=== PATIENT | female | born 1940 | race Caucasian/White ===

== ENCOUNTER 2019-04-04 02:19 | Inpatient (IN) | payer MEDICARE, BC ==
[2019-04-04 02:52] LABS: Bilirubin Negative (Negative); Blood, Urine Trace (Negative); Clarity Clear (Clear); Glucose, Urine (Dipstick) Normal (Negative); Leukocyte Negative Leu/uL (Negative); Nitrite Negative (Negative); Protein, Urine (Dipstick) 30 mg/dL (Neg-Trace); RBC/HPF 0-3 HPF (0-3); Squamous Epithelial 0-3 HPF (0-3); Urobilinogen Normal mg/dL (Less than 2); WBC/HPF 0-3 HPF (0-3)
[2019-04-04 02:54] LABS: Bacteria/HPF 1+ HPF (None Seen)
[2019-04-04 03:05] LABS: #Basophils 0.1 thou/uL (0.0-0.2); #Eosinphils 0.1 thou/uL (0.0-0.7); #Lymphocytes 0.9 thou/uL (1.20-3.40); #Monocytes 0.5 thou/uL (0.11-0.59); #Neutrophils 5.2 thou/uL (1.40-6.50); %Basophils 0.8 % (0.0-1.0); %Eosinophils 1.4 % (0.0-10.0); %Monocytes 7.9 % (0.0-10.0); %Neutrophils 76.8 % (42.0-75.0); Hemoglobin 9.2 g/dL (12.0-16.0); Mean Corpuscular HGB CONC 33.7 g/dL (32.0-36.0); Mean Corpuscular Hemoglobin 32.1 pg (27.0-31.0); Mean Corpuscular Volume 95.1 fL (78.0-98.0); Mean Platelet Volume 6.5 fL (7.4-10.4); Platelet Count 227 thou/uL (130-400); RBC Distribution Width 12.5 % (11.5-14.5); Red Blood Cell (RBC) Count 2.85 mill/uL (4.20-5.40); White Blood Cell (WBC) Count 6.8 thou/uL (4.8-10.8)
[2019-04-04 03:22] LABS: ALT (SGPT) 31 U/L (8-55); AST (SGOT) 40 U/L (5-34); Albumin 3.9 g/dL (3.4-4.8); Alkaline Phosphatase 59 U/L (40-150); Anion Gap 12 mmol/L (10-20); BUN (Urea Nitrogen) 35 mg/dL (9.8-20.1); Bilirubin, Total 0.5 mg/dL (0.2-1.2); CK (CPK) 425 U/L (29-168); Calc. Creatinine Clearance 0 mL/min (70-130); Calcium 9.4 mg/dL (7.8-10.44); Carbon Dioxide 25 mmol/L (23-31); Chloride 97 mmol/L (98-107); Estimated GFR-MDRD 59; Globulin 2.2 g/dL (2.4-3.5); Glucose 106 mg/dL (83-110); Potassium 4.1 mmol/L (3.5-5.1); Protein, Total 6.1 g/dL (6.0-8.3); Sodium 130 mmol/L (136-145)
[2019-04-04] MEDS ORDERED: Ibuprofen 200 MG TAB ONE (03:35)
[2019-04-04] MEDS ORDERED: HYDROcodone/Acetaminophen 5/325 mg Tablet ONE (03:35)
[2019-04-04] MEDS ORDERED: Loperamide HCl 2 MG CAP PO PRN (07:28)
[2019-04-04] MEDS ORDERED: hydrALAZINE 20 MG/ML VIAL SLOW IVP PRN (07:28)
[2019-04-04] MEDS ORDERED: Cepastat Lozenges 1 LOZ PO PRN (07:28)
[2019-04-04] MEDS ORDERED: Zolpidem Tartrate 5 MG TAB PO PRN (07:28)
[2019-04-04] MEDS ORDERED: Sodium Chloride 0.65% Nasal 44 ML BOT EA NARE PRN (07:28)
[2019-04-04] MEDS ORDERED: Ondansetron PF 4 MG/2 ML Vial IVP PRN (07:28)
[2019-04-04] MEDS ORDERED: Bisacodyl 10 MG SUPP PR PRN (07:28)
[2019-04-04] MEDS ORDERED: Ondansetron ODT 4 MG TAB PO PRN (07:28)
[2019-04-04] MEDS ORDERED: Diabetic Tussin 200 MG/10 ML UDCUP PO PRN (07:28)
[2019-04-04] MEDS ORDERED: Loratadine 10 MG TAB PO PRN (07:28)
[2019-04-04 07:36] VITALS: BMI 24.7
[2019-04-04] MEDS ORDERED: Prevnar 13-Val Conj/PF 0.5 ML SYRINGE IM ONE (08:00)
[2019-04-04] MEDS: Sodium Chloride 0.9% 1,000 ML IV SCH ×3 (08:01→21:17)
--- NOTE | 2019-04-04 08:01 | CT ---
PRELIMINARY REPORT/[facility]/EMERGENCY AFTER HOURS PROCEDURE: EXAM: CT Head Without Contrast EXAM DATE/TIME: 04/04/2019 3:07 AM CLINICAL HISTORY: 78 years old, female; Injury or trauma; Initial encounter; Blunt trauma (contusions or hematomas); Niko kavya HX: 78 y/o F presents to ED S/P fall. PT informed EMS of multiple falls this month, which PT de scribes to have been due to syncope; However she reports fall tonight was mechanical in nature. PT C/O SMITH. Denies neck pain, back pain, hip pain, cp, vision changes. PT has full memory of fall marcel ght TECHNIQUE: Imaging protocol: Computed tomography images of the head without contrast. COMPARISON: No relevant prior studies available. FINDINGS: Brain: Scattered areas of hypoattenuation, likely chronic small vessel ischemic change, demyelination , or gliosis. Ventricles: Normal. Bones/joints: Normal. Sinuses: Normal as visualized. Mastoid air cells: Normal as visualized. Soft tissues: Right frontal and left posterior parietal soft tissue swelling/contusions. Vasculature: Atherosclerotic vascular calcifications. IMPRESSION: 1. No acute intracranial abnormality. 2. Right frontal and left posterior parietal soft tissue swelling/contusions. Thank you for allowing us to participate in the care of your patient. Dictated and Authenticated by: Dale Cifuentes MD 04/04/2019 4:00 AM Central Time ([place] & [place]) FINAL REPORT EMERGENT AFTER HOURS CT OF THE BRAIN WITHOUT CONTRAST: FINDINGS/IMPRESSION: I agree with the findings and impression given in the preliminary report per [facility] physician. 1. No evidence of acute intracranial abnormality. 2. Small-vessel ischemic disease.
[2019-04-04] MEDS: Famotidine 20 MG TAB PO SCH ×2 (08:45→21:06)
[2019-04-04] MEDS: Enoxaparin Sodium 40 MG/0.4 ML SYRINGE SC SCH (08:46)
--- NOTE | 2019-04-04 09:05 | RAD ---
RIGHT SHOULDER 3 VIEWS: HISTORY: Fall with shoulder pain. FINDINGS: There are mild arthritic changes of the shoulder joints. The bones appear demineralized. There are no signs of any fracture or dislocation. There are some calcified bodies near the coracoid and benea th the clavicle. IMPRESSION: Mild arthritic changes of the shoulder. No evidence of fracture. POS: [facility]
--- NOTE | 2019-04-04 12:55 | HP ---
PRIMARY CARE PHYSICIAN: Edwin Alex MD REASON FOR ADMISSION: Frequent fall, rhabdomyolysis, dehydration. HISTORY OF PRESENT ILLNESS: A 78-year-old female, who has underlying dementia. She was having frequent fall at home. She is not able to describe her nature of fall and reason for fall, but she claims that all fall related secondary to mechanical in nature. She had a similar fall last night and that is why, she was brought to emergency room. She does have mild shoulder pain and that is why, x-ray was done, which was negative. She had CT brain, which was negative for any acute intracranial process. REVIEW OF SYSTEMS: CONSTITUTIONAL: Negative for weight loss or gain, ability to conduct usual activities. SKIN: Negative for rash, itching. EYES: Negative for double vision, pain. ENT/MOUTH: Negative for nose bleeding, neck stiffness, pain, tenderness. CARDIOVASCULAR: Negative for palpitations, dyspnea on exertion, orthopnea. RESPIRATORY: Negative for shortness of breath, wheezing, cough, hemoptysis, fever or night sweats. GASTROINTESTINAL: Negative for poor appetite, abdominal pain, heartburn, nausea, vomiting, constipation, or diarrhea. GENITOURINARY: Negative for urgency, frequency, dysuria, nocturia. MUSCULOSKELETAL: Negative for pain, swelling. NEUROLOGIC/PSYCHIATRIC: Negative for anxiety, depression. ALLERGY/IMMUNOLOGIC: Negative for skin rash, bleeding tendency. Please see my HPI for pertinent positives and negatives. All other review of systems reviewed and negative except as mentioned in HPI. PAST MEDICAL HISTORY: Gastroesophageal reflux disease, hypertension, dyslipidemia, Alzheimer's dementia, history of CVA, and chronic kidney disease stage 3. PAST SURGICAL HISTORY: Adenoidectomy, appendicectomy, cholecystectomy, tonsillectomy, and cardiac catheterization. PAST PSYCHIATRIC HISTORY: Anxiety, depression, and bipolar disorder. SOCIAL HISTORY: The patient lives at home. No history of tobacco, alcohol, or illicit drug abuse. FAMILY HISTORY: Unknown. The patient is not able to provide detailed family history at this point. ALLERGIES: LYRICA, SULFA, TETRACYCLINE, AND WELLBUTRIN. EMERGENCY ROOM COURSE: The patient is given Gibson and Motrin. CURRENT HOME MEDICATION: 1. Amlodipine 10 mg daily. 2. Lipitor 40 mg p.o. at bedtime. 3. Vitamin B12 1000 mcg p.o. daily. 4. Hydrochlorothiazide 25 mg p.o. daily. 5. Imdur 60 mg p.o. daily. 6. Lisinopril 40 mg p.o. daily. 7. Toprol-XL 25 mg p.o. daily. PHYSICAL EXAMINATION: VITAL SIGNS: Currently, temperature 97.9, pulse 72, respiratory rate 18, saturation 99% on room air, blood pressure 157/68, weight 144 pounds. GENERAL: The patient is currently alert, awake. Baseline dementia noted. No acute distress. HEENT: Head; normocephalic, atraumatic. The patient does have mild hematoma on forehead. Eyes; pupils round, reactive to light. Extraocular muscle intact. ENT; oropharynx within normal limits. Moist mucous membranes. No oral lesion. No pharyngeal erythema. No exudate. NECK: Supple. No JVD. No thyromegaly. No carotid bruit. No jugular venous distention. LUNGS: Clear to auscultation without any rhonchi or rales. CARDIAC: S1, S2 regular without any significant murmur. Soft systolic murmur may be there, but not well appreciated. BACK EXAMINATION: Unremarkable. No CVA tenderness. EXTREMITIES: Upper extremities, the patient does have ecchymosis and contusion over right shoulder, abrasion over right forearm. Lower extremity, no edema. Good distal pulsation. SKIN: No skin rash other than contusion and abrasion. HEMATOLOGICAL SYSTEM: No lymphadenopathy. NEUROLOGIC: Nonfocal examination. SIGNIFICANT LABORATORY DATA: EKG showing normal sinus rhythm without any acute ischemic changes. CT brain showing right frontal and left posterior parietal soft tissue swelling/contusion. X-ray shoulder showing degenerative joint disease. CBC; WBC 6.8, hemoglobin 9.2, platelet 227. BMP; sodium 130, potassium 4.1, chloride 97, carbon dioxide 25, BUN 35, creatinine 0.93, glucose 106, calcium 9.4. LFT; AST 40, ALT 31, alkaline phosphatase 59, albumin 3.9. CK 425, troponin I 0.015. Urinalysis normal. ASSESSMENT: Impression: 1. Hyponatremia and hypochloremia likely due to volume depletion. 2. Dehydration. 3. Rhabdomyolysis. 4. Frequent fall. 5. Normocytic normochromic anemia. 6. Alzheimer's dementia. 7. Anxiety, depression, and bipolar disorder. 8. Coronary artery disease. 9. Hypertension. 10. Dyslipidemia. 11. Physical deconditioning. PLAN: Admission to medical floor. PT/OT consultation. grocery department manager consultation for placement. Continue IV fluid with NS at 100 mL/h. Resume her home medication. We will hold Lipitor because of elevated CK. We will repeat CK level tomorrow. We will check orthostatic vitals and we will get echocardiography as a part of workup for suspected syncope. The patient may need placement. grocery department manager will be consulted. We will monitor while in hospital. DVT prophylaxis, Lovenox 40 mg subcu daily. GI prophylaxis, Pepcid 20 mg p.o. b.i.d. CODE STATUS: The patient is full code. DISPOSITION PLAN: Based on clinical course. We are expecting the patient's stay in hospital more than 2 midnights. Plan of care was discussed with the patient in detail. Job ID: [id number]
[2019-04-04] MEDS: HYDROcodone/Acetaminophen 5/325 mg Tablet PO PRN ×2 (14:29→21:06)
[2019-04-05] MEDS: Acetaminophen 325 MG TAB PO PRN ×2 (03:49→10:52)
[2019-04-05 04:26] LABS: #Basophils 0.1 thou/uL (0.0-0.2); #Eosinphils 0.1 thou/uL (0.0-0.7); #Lymphocytes 0.8 thou/uL (1.20-3.40); #Monocytes 0.4 thou/uL (0.11-0.59); #Neutrophils 3.7 thou/uL (1.40-6.50); %Basophils 1.3 % (0.0-1.0); %Eosinophils 2.8 % (0.0-10.0); %Lymphocytes 15.3 % (21.0-51.0); %Monocytes 8.3 % (0.0-10.0); %Neutrophils 72.3 % (42.0-75.0); Hemoglobin 9.6 g/dL (12.0-16.0); Mean Corpuscular HGB CONC 33.1 g/dL (32.0-36.0); Mean Corpuscular Hemoglobin 32.1 pg (27.0-31.0); Mean Corpuscular Volume 96.8 fL (78.0-98.0); Mean Platelet Volume 6.5 fL (7.4-10.4); Platelet Count 219 thou/uL (130-400); RBC Distribution Width 12.6 % (11.5-14.5); Red Blood Cell (RBC) Count 3.01 mill/uL (4.20-5.40); White Blood Cell (WBC) Count 5.1 thou/uL (4.8-10.8)
[2019-04-05 04:45] LABS: ALT (SGPT) 25 U/L (8-55); AST (SGOT) 29 U/L (5-34); Albumin 3.4 g/dL (3.4-4.8); Alkaline Phosphatase 56 U/L (40-150); Anion Gap 11 mmol/L (10-20); BUN (Urea Nitrogen) 29 mg/dL (9.8-20.1); Bilirubin, Total 0.4 mg/dL (0.2-1.2); CK (CPK) 207 U/L (29-168); Calc. Creatinine Clearance 49 mL/min (70-130); Calcium 9.4 mg/dL (7.8-10.44); Carbon Dioxide 26 mmol/L (23-31); Chloride 102 mmol/L (98-107); Estimated GFR-MDRD 54; Globulin 2.5 g/dL (2.4-3.5); Glucose 114 mg/dL (83-110); Potassium 4.6 mmol/L (3.5-5.1); Protein, Total 5.9 g/dL (6.0-8.3); Sodium 134 mmol/L (136-145)
[2019-04-05] MEDS: Amlodipine 10 MG TAB PO SCH (08:01)
[2019-04-05] MEDS: Famotidine 20 MG TAB PO SCH ×2 (08:01→21:54)
[2019-04-05] MEDS: Hydrochlorothiazide 25 MG TAB PO SCH (08:02)
[2019-04-05] MEDS: Cyanocobalamin (Vitamin B-12) 1,000 MCG TAB PO SCH (08:02)
[2019-04-05] MEDS: Enoxaparin Sodium 40 MG/0.4 ML SYRINGE SC SCH (08:03)
[2019-04-05] MEDS ORDERED: Lisinopril 20 MG TAB PO SCH (09:00)
[2019-04-05] MEDS: HYDROcodone/Acetaminophen 5/325 mg Tablet PO PRN ×3 (14:26→22:44)
--- NOTE | 2019-04-05 17:44 | PDOC.PN ---
- Subjective Encounter Start Date: 04/05/19 Encounter Start Time: 10:20 Subjective: no sob, is ambulating per staff in room -: no specific complaints, but has aches and pain - Objective Resuscitation Status - Order Detail: 04/04/19 07:28 Resuscitation Status Routine Resuscitation Status: FULL: Full Resuscitation MAR Reviewed: Yes Vital Signs & Weight: Vital Signs (12 hours) Temp Pulse Resp BP BP Pulse Ox 04/05/19 15:55 82 18 197/93 H 96 04/05/19 11:34 97.8 F 74 18 170/67 H 96 04/05/19 08:01 84 188/73 H 04/05/19 08:00 188/73 H 96 04/05/19 07:48 97.8 F 84 18 106/83 96 Weight Admit Weight 144 lb 3 oz Weight 144 lb 3 oz I&O: 04/04/19 04/05/19 04/06/19 06:59 06:59 06:59 Intake Total 3530 Balance 3530 Result Diagrams: 04/05/19 04:01 04/05/19 04:01 Phys Exam - Physical Examination HEENT: PERRLA, moist MMs Neck: no JVD, supple Respiratory: no wheezing, no rales Cardiovascular: RRR, no significant murmur Gastrointestinal: soft, non-tender, positive bowel sounds Musculoskeletal: no edema, pulses present Neurological: non-focal, moves all 4 limbs very anxious Dx/Plan (1) H/O fall Code(s): Z91.81 - HISTORY OF FALLING Status: Acute (2) Rhabdomyolysis Code(s): M62.82 - RHABDOMYOLYSIS Status: Acute Comment: resolving (3) Dehydration Code(s): E86.0 - DEHYDRATION Status: Acute Comment: resolving (4) HTN (hypertension) Code(s): I10 - ESSENTIAL (PRIMARY) HYPERTENSION Status: Chronic Qualifiers: Hypertension type: essential hypertension Qualified Code(s): I10 - Essential (primary) hypertension (5) H/O: CVA (cerebrovascular accident) Code(s): Z86.73 - PRSNL HX OF TIA (TIA), AND CEREB INFRC W/O RESID DEFICITS Status: Chronic (6) Chronic anemia Code(s): D64.9 - ANEMIA, UNSPECIFIED Status: Chronic (7) Dyslipidemia Code(s): E78.5 - HYPERLIPIDEMIA, UNSPECIFIED Status: Chronic (8) Dementia Code(s): F03.90 - UNSPECIFIED DEMENTIA WITHOUT BEHAVIORAL DISTURBANCE Status: Suspected Qualifiers: Dementia type: Alzheimer's disease - Plan has likely orthostasis -: will redistribute her htn meds -: encourage po intake, dc iv fluids after current bag -: PT/OT to mobilize as tolerated, likely will need placement -: continue norvasc, lisinopril bid lower dose, toprol xl, imdur, dc lasix * . Review of Systems - Medications/Allergies Allergies/Adverse Reactions: Allergies Allergy/AdvReac Type Severity Reaction Status Date / Time bupropion [From Wellbutrin] Allergy Verified 04/04/19 07:38 pregabalin [From Lyrica] Allergy Verified 04/04/19 07:38 Sulfa (Sulfonamide Allergy Verified 04/04/19 07:38 Antibiotics) tetracycline Allergy Verified 04/04/19 07:38 Medications: Current Medications Acetaminophen (Tylenol) 650 mg PO Q4H PRN PRN Reason: Headache/Fever/Mild Pain (1-3) Last Admin: 04/05/19 10:52 Dose: 650 mg Hydrocodone Bitart/Acetaminophen ([place] 5/325) 1 tab PO Q4H PRN PRN Reason: Moderate Pain (4-6) Last Admin: 04/05/19 14:26 Dose: 1 tab Amlodipine Besylate (Norvasc) 10 mg PO DAILY [facility] Last Admin: 04/05/19 08:01 Dose: 10 mg Bisacodyl (Dulcolax) 10 mg [place] DAILYPRN PRN PRN Reason: Constipation Calcium Carbonate (Tums) 1,000 mg PO Q4H PRN PRN Reason: Heartburn or Indigestion Cyanocobalamin (Vitamin B-12) 1,000 mcg PO DAILY [facility] Last Admin: 04/05/19 08:02 Dose: 1,000 mcg Enoxaparin Sodium (Lovenox) 40 mg SC 0900 [facility] Last Admin: 04/05/19 08:03 Dose: 40 mg Famotidine (Pepcid) 20 mg PO BID [facility] Last Admin: 04/05/19 08:01 Dose: 20 mg Guaifenesin (Robitussin Sf) 200 mg PO Q4H PRN PRN Reason: Cough Hydralazine HCl (Apresoline) 10 mg SLOW IVP Q4H PRN PRN Reason: SBP > 180 and HR < 70 Hydrochlorothiazide (Hydrochlorothiazide) 25 mg PO DAILY [facility] Last Admin: 04/05/19 08:02 Dose: 25 mg Sodium Chloride (Normal Saline 0.9%) 1,000 mls @ 100 mls/hr IV .Q10H [facility] Last Admin: 04/04/19 21:17 Dose: 1,000 mls Isosorbide Mononitrate (Imdur) 60 mg PO DAILY [facility] Last Admin: 04/05/19 08:01 Dose: 60 mg Lisinopril (Zestril) 40 mg PO DAILY [facility] Last Admin: 04/05/19 08:00 Dose: 40 mg Loperamide HCl (Imodium) 2 mg PO PRN PRN PRN Reason: Diarrhea/Loose Stools Loratadine (Claritin) 10 mg PO DAILYPRN PRN PRN Reason: Sinus Symptoms Metoprolol Succinate (Toprol Xl) 25 mg PO DAILY [facility] Last Admin: 04/05/19 08:02 Dose: 25 mg Ondansetron HCl (Zofran Odt) 4 mg PO Q6H PRN PRN Reason: Nausea/Vomiting Ondansetron HCl (Zofran) 4 mg IVP Q6H PRN PRN Reason: Nausea/Vomiting Senna/Docusate Sodium (Senokot S) 2 tab PO BID PRN PRN Reason: Constipation Sodium Chloride ([place] Nasal [place] 0.65%) 0 ml EA NARE QIDPRN PRN PRN Reason: Nasal Congestion Throat Lozenges (Cepastat Lozenges) 1 sarah PO Q2H PRN PRN Reason: Sore Throat Zolpidem Tartrate (Ambien) 5 mg PO HSPRN PRN PRN Reason: Insomnia
[2019-04-05] MEDS: Lisinopril 10 MG TAB PO SCH (19:37)
[2019-04-05] MEDS: Sodium Chloride 0.9% 1,000 ML IV SCH (22:24)
[2019-04-06] MEDS: HYDROcodone/Acetaminophen 5/325 mg Tablet PO PRN ×4 (03:16→20:13)
[2019-04-06] MEDS: Famotidine 20 MG TAB PO SCH ×2 (09:50→20:14)
[2019-04-06] MEDS: Hydrochlorothiazide 25 MG TAB PO SCH (09:51)
[2019-04-06] MEDS: Lisinopril 10 MG TAB PO SCH ×2 (09:51→20:12)
[2019-04-06] MEDS: Cyanocobalamin (Vitamin B-12) 1,000 MCG TAB PO SCH (09:51)
[2019-04-06] MEDS: Amlodipine 10 MG TAB PO SCH (09:51)
[2019-04-06] MEDS: Enoxaparin Sodium 40 MG/0.4 ML SYRINGE SC SCH (09:52)
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
[2019-04-06] MEDS ORDERED: Levothyroxine Sodium 112 MCG TAB PO SCH (15:00)
[2019-04-06] MEDS: Calcium Carbonate 500 MG ChewTAB PO PRN (15:51)
[2019-04-06] MEDS: Senokot S 8.6-50 MG TAB PO PRN (20:16)
[2019-04-07] MEDS: HYDROcodone/Acetaminophen 5/325 mg Tablet PO PRN ×2 (01:22→10:12)
[2019-04-07] MEDS ORDERED: Levothyroxine Sodium 112 MCG TAB PO SCH (06:00)
[2019-04-07 07:17] VITALS: TEMP 97.9
[2019-04-07] MEDS: Calcium Carbonate 500 MG ChewTAB PO PRN ×2 (08:31→14:43)
[2019-04-07] MEDS: Hydrochlorothiazide 25 MG TAB PO SCH (08:32)
[2019-04-07] MEDS: Enoxaparin Sodium 40 MG/0.4 ML SYRINGE SC SCH ×3 (08:32→09:41)
[2019-04-07] MEDS: Lisinopril 10 MG TAB PO SCH (08:33)
[2019-04-07] MEDS: Cyanocobalamin (Vitamin B-12) 1,000 MCG TAB PO SCH (08:34)
[2019-04-07] MEDS: Amlodipine 10 MG TAB PO SCH (08:34)
[2019-04-07] MEDS: Famotidine 20 MG TAB PO SCH (08:34)
[2019-04-07] MEDS: Senokot S 8.6-50 MG TAB PO PRN (09:38)
[2019-04-07 10:44] VITALS: BP 158/58
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
== END 2019-04-07 14:50 | disposition home health service (06) | DRG 558 ==
LOC: ERS 02:19 → SJJU 03:45
PROVIDERS: ADMIT Hospitalist; ATTEND Hospitalist
DX: M62.82 Rhabdomyolysis (principal); E87.1 Hypo-osmolality and hyponatremia; N17.9 Acute kidney failure, unspecified; E78.00 Pure hypercholesterolemia, unspecified; F31.9 Bipolar disorder, unspecified; E86.0 Dehydration; K21.9 Gastro-esophageal reflux disease without esophagitis; I12.9 Hypertensive chronic kidney disease with stage 1 through stage 4 chronic kidney disease, or unspecified chronic kidney disease; G30.9 Alzheimer's disease, unspecified; F02.80 Dementia in other diseases classified elsewhere, unspecified severity, without behavioral disturbance, psychotic disturbance, mood disturbance, and anxiety; N18.3 Chronic kidney disease, stage 3 (moderate); F41.9 Anxiety disorder, unspecified; D63.1 Anemia in chronic kidney disease; I25.10 Atherosclerotic heart disease of native coronary artery without angina pectoris; E87.8 Other disorders of electrolyte and fluid balance, not elsewhere classified; Z88.2 Allergy status to sulfonamides; Z88.1 Allergy status to other antibiotic agents; Z88.8 Allergy status to other drugs, medicaments and biological substances; Z90.49 Acquired absence of other specified parts of digestive tract; Z79.899 Other long term (current) drug therapy
CPT/HCPCS: 36415; 70450; 80053; 81003; 81015; 82550; 84484; 85025; 90471; 90670; 93005; 93306; G0009; J0360; J1650

== ENCOUNTER 2019-05-22 14:39 | Observation (INO) | payer MEDICARE, BC ==
[2019-05-22 15:48] LABS: #Eosinphils 0.1 thou/uL (0.0-0.7); #Lymphocytes 0.8 thou/uL (1.20-3.40); #Monocytes 0.4 thou/uL (0.11-0.59); %Basophils 0.9 % (0.0-1.0); %Eosinophils 1.8 % (0.0-10.0); %Lymphocytes 14.4 % (21.0-51.0); %Neutrophils 75.9 % (42.0-75.0); Hemoglobin 9.5 g/dL (12.0-16.0); Mean Corpuscular HGB CONC 35.1 g/dL (32.0-36.0); Mean Corpuscular Hemoglobin 32.9 pg (27.0-31.0); Mean Corpuscular Volume 93.8 fL (78.0-98.0); Mean Platelet Volume 6.5 fL (7.4-10.4); Platelet Count 233 thou/uL (130-400); RBC Distribution Width 12.7 % (11.5-14.5); Red Blood Cell (RBC) Count 2.88 mill/uL (4.20-5.40); White Blood Cell (WBC) Count 5.3 thou/uL (4.8-10.8)
--- NOTE | 2019-05-22 16:01 | RAD ---
EXAM: Chest 2 views: HISTORY: Dyspnea/shortness of breath COMPARISON: None. FINDINGS: There is a normal-sized cardiomediastinal silhouette. There may be calcifications within the mitral valve. Atherosclerotic calcifications are seen in the aorta. There is no evidence of consolidation, mass, or pleural effusion. The bones are unremarkable. IMPRESSION: No evidence of acute cardiopulmonary disease
[2019-05-22 16:07] LABS: ALT (SGPT) 28 U/L (8-55); AST (SGOT) 42 U/L (5-34); Albumin 4.1 g/dL (3.4-4.8); Alkaline Phosphatase 58 U/L (40-150); Anion Gap 13 mmol/L (10-20); BUN (Urea Nitrogen) 44 mg/dL (9.8-20.1); Bilirubin, Total 0.3 mg/dL (0.2-1.2); Calc. Creatinine Clearance 0 mL/min (70-130); Carbon Dioxide 24 mmol/L (23-31); Chloride 98 mmol/L (98-107); Estimated GFR-MDRD 46; Globulin 2.7 g/dL (2.4-3.5); Glucose 94 mg/dL (83-110); Potassium 5.2 mmol/L (3.5-5.1); Protein, Total 6.8 g/dL (6.0-8.3); Sodium 130 mmol/L (136-145)
--- NOTE | 2019-05-22 17:02 | CT ---
EXAM: CT brain without contrast HISTORY: Altered mental status and multiple falls COMPARISON: 04/10/2019 TECHNIQUE: Multiple contiguous axial images were obtained and a CT of the brain without contrast. FINDINGS: There are scattered hypodensities in the subcortical and periventricular white matter consi stent with small vessel ischemic disease. There is no evidence of hydrocephalus, intracranial hemorrhage, or extra-axial fluid collection. The calvarium and overlying soft tissues are unremarkable. The visualized paranasal sinuses and masto id air cells are well aerated. IMPRESSION: No evidence of acute intracranial abnormality
--- NOTE | 2019-05-22 17:03 | CT ---
EXAM: CT of the cervical spine without contrast HISTORY: Altered mental status. Multiple falls with neck pain COMPARISON: 03/25/2019 TECHNIQUE: Multiple contiguous axial images were obtained in a CT of the cervical spine without contr ast. Sagittal and coronal reformats were performed. FINDINGS: The vertebral bodies and intervertebral discs demonstrate normal height and alignment witho ut fracture or subluxation. Moderate degenerative changes are present in the lower cervical spine. No prevertebral soft tissue swelling is seen. The posterior facets are well aligned. Normal alignment of the skull base with the cervical spine is seen. The lung apices and cervical soft tissues are unremarkable. IMPRESSION: No evidence of acute osseous abnormality of the cervical spine.
--- NOTE | 2019-05-22 17:09 | RAD ---
EXAM: 2 views of the right hip HISTORY: Right hip pain COMPARISON: None FINDINGS: 2 views of the right hip shows no evidence of acute fracture or dislocation. No degenerativ e changes are seen. No soft tissue swelling is present. IMPRESSION: No evidence of acute osseous abnormality.
[2019-05-22 17:20] LABS: Acetaminophen Less than 6.0 mcg/mL (10.0-30.0); Alcohol Less than 10 mg/dL (Less than 10); Salicylate Less than 8.0 mg/dL (15.0-30.0)
[2019-05-22] MEDS ORDERED: Acetaminophen 325 MG TAB PO PRN (19:05)
[2019-05-22 19:18] VITALS: BMI 22.2
[2019-05-22 20:04] LABS: Bilirubin Negative (Negative); Blood, Urine Negative (Negative); Clarity Clear (Clear); Glucose, Urine (Dipstick) Normal (Negative); Leukocyte Negative Leu/uL (Negative); Nitrite Negative (Negative); Protein, Urine (Dipstick) 20 mg/dL (Neg-Trace); Urobilinogen Normal mg/dL (Less than 2)
[2019-05-22 20:13] LABS: Amphetamine Not Detected (NotDetected); Barbiturates Screen Not Detected (NotDetected); Benzodiazepine Screen Not Detected (NotDetected); Cocaine Metabolite Screen Not Detected (NotDetected); Medtox Control Line Valid? VALID (VALID); Medtox Reader # READER 1; Methadone Not Detected (NotDetected); Methamphetamine Not Detected (NotDetected); Opiate Screen Not Detected (NotDetected); Oxycodone Screen Not Detected (NotDetected); Phencyclidine (PCP) Not Detected (NotDetected); THC/Cannabinoid Screen Not Detected (NotDetected); Tricyclic Screen Not Detected (NotDetected)
[2019-05-23] MEDS ORDERED: Senokot S 8.6-50 MG TAB PO PRN (07:36)
[2019-05-23] MEDS ORDERED: Bisacodyl 5 MG TAB PO PRN (07:36)
[2019-05-23] MEDS ORDERED: Acetaminophen 325 MG TAB PO PRN (07:36)
[2019-05-23] MEDS ORDERED: Calcium Carbonate 500 MG ChewTAB PO PRN (07:36)
[2019-05-23] MEDS ORDERED: HYDROcodone/Acetaminophen 5/325 mg Tablet PO PRN (07:36)
[2019-05-23] MEDS ORDERED: Ondansetron PF 4 MG/2 ML Vial IVP PRN (07:36)
[2019-05-23] MEDS ORDERED: Docusate 100 MG CAP PO PRN (07:38)
[2019-05-23] MEDS ORDERED: hydrALAZINE 20 MG/ML VIAL SLOW IVP PRN (07:38)
[2019-05-23] MEDS ORDERED: Spironolactone 25 MG TAB PO SCH (08:00)
[2019-05-23] MEDS: Sodium Chloride 0.9% 1,000 ML IV SCH (09:14)
[2019-05-23 09:21] LABS: #Basophils 0.1 thou/uL (0.0-0.2); #Eosinphils 0.1 thou/uL (0.0-0.7); #Lymphocytes 0.7 thou/uL (1.20-3.40); #Monocytes 0.3 thou/uL (0.11-0.59); #Neutrophils 4.2 thou/uL (1.40-6.50); %Basophils 0.9 % (0.0-1.0); %Lymphocytes 12.4 % (21.0-51.0); %Monocytes 5.2 % (0.0-10.0); %Neutrophils 79.5 % (42.0-75.0); Hemoglobin 10.6 g/dL (12.0-16.0); Mean Corpuscular HGB CONC 34.6 g/dL (32.0-36.0); Mean Corpuscular Volume 95.4 fL (78.0-98.0); Mean Platelet Volume 6.4 fL (7.4-10.4); Platelet Count 241 thou/uL (130-400); RBC Distribution Width 12.8 % (11.5-14.5); Red Blood Cell (RBC) Count 3.22 mill/uL (4.20-5.40); White Blood Cell (WBC) Count 5.3 thou/uL (4.8-10.8)
[2019-05-23] MEDS: Isosorbide Mononitrate (ER) 30 MG TAB PO SCH (09:38)
[2019-05-23] MEDS: Hydrochlorothiazide 25 MG TAB PO SCH (09:38)
[2019-05-23] MEDS: Cyanocobalamin (Vitamin B-12) 1,000 MCG TAB PO SCH (09:39)
[2019-05-23] MEDS: Divalproex Sodium 125 mg Sprinkle Capsule PO SCH ×2 (09:39→19:58)
[2019-05-23] MEDS: Amlodipine 10 MG TAB PO SCH (09:39)
[2019-05-23] MEDS: Lisinopril 10 MG TAB PO SCH ×2 (09:40→19:58)
[2019-05-23 09:42] LABS: Anion Gap 13 mmol/L (10-20); BUN (Urea Nitrogen) 34 mg/dL (9.8-20.1); Calc. Creatinine Clearance 42 mL/min (70-130); Calcium 9.7 mg/dL (7.8-10.44); Carbon Dioxide 22 mmol/L (23-31); Chloride 99 mmol/L (98-107); Estimated GFR-MDRD 50; Glucose 165 mg/dL (83-110); Potassium 4.4 mmol/L (3.5-5.1); Sodium 130 mmol/L (136-145)
[2019-05-23] MEDS ORDERED: cefTRIAXone Sodium 2 MG in Syringe 0 ML IVPB SCH (14:00)
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
[2019-05-23] MEDS: HYDROcodone/Acetaminophen 7.5/325 mg Tablet PO PRN ×2 (15:48→23:02)
[2019-05-23] MEDS: cefTRIAXone\\ROCEPHIN 2 GM in Sodium Chloride 0.9% 100 ML IVPB SCH (15:50)
[2019-05-23] MEDS ORDERED: Fluticasone Propionate Nasal Spray 16 gm Bottle NASAL PRN (17:06)
[2019-05-23] MEDS ORDERED: Artificial Tears 18 DROP/0.9 ML EA EYE PRN (17:07)
[2019-05-23] MEDS: Atorvastatin Calcium 40 MG TAB PO SCH (19:58)
[2019-05-24] MEDS: Sodium Chloride 0.9% 1,000 ML IV SCH (04:09)
[2019-05-24] MEDS: HYDROcodone/Acetaminophen 7.5/325 mg Tablet PO PRN ×3 (04:10→19:35)
[2019-05-24] MEDS: Levothyroxine Sodium 112 MCG TAB PO SCH (04:10)
[2019-05-24 04:42] LABS: #Eosinphils 0.2 thou/uL (0.0-0.7); #Lymphocytes 0.9 thou/uL (1.20-3.40); #Monocytes 0.4 thou/uL (0.11-0.59); #Neutrophils 4.1 thou/uL (1.40-6.50); %Basophils 0.7 % (0.0-1.0); %Eosinophils 3.7 % (0.0-10.0); %Lymphocytes 15.5 % (21.0-51.0); %Monocytes 7.5 % (0.0-10.0); %Neutrophils 72.6 % (42.0-75.0); Hemoglobin 9.4 g/dL (12.0-16.0); Mean Corpuscular HGB CONC 34.7 g/dL (32.0-36.0); Mean Corpuscular Volume 95.1 fL (78.0-98.0); Mean Platelet Volume 6.5 fL (7.4-10.4); Platelet Count 210 thou/uL (130-400); RBC Distribution Width 12.7 % (11.5-14.5); Red Blood Cell (RBC) Count 2.83 mill/uL (4.20-5.40); White Blood Cell (WBC) Count 5.6 thou/uL (4.8-10.8)
[2019-05-24 05:00] LABS: Anion Gap 11 mmol/L (10-20); BUN (Urea Nitrogen) 30 mg/dL (9.8-20.1); Calc. Creatinine Clearance 47 mL/min (70-130); Calcium 9.4 mg/dL (7.8-10.44); Carbon Dioxide 26 mmol/L (23-31); Chloride 98 mmol/L (98-107); Estimated GFR-MDRD 58; Glucose 89 mg/dL (83-110); Potassium 4.6 mmol/L (3.5-5.1); Sodium 130 mmol/L (136-145)
[2019-05-24] MEDS: Divalproex Sodium 125 mg Sprinkle Capsule PO SCH ×2 (08:16→20:56)
[2019-05-24] MEDS: Cyanocobalamin (Vitamin B-12) 1,000 MCG TAB PO SCH (08:16)
[2019-05-24] MEDS: Lisinopril 10 MG TAB PO SCH ×2 (08:16→20:57)
[2019-05-24] MEDS: Amlodipine 10 MG TAB PO SCH (08:16)
[2019-05-24] MEDS: Isosorbide Mononitrate (ER) 30 MG TAB PO SCH (08:17)
[2019-05-24] MEDS: Hydrochlorothiazide 25 MG TAB PO SCH (08:17)
[2019-05-24] MEDS: Ondansetron ODT 4 MG TAB PO PRN (12:58)
[2019-05-24] MEDS ORDERED: Artificial Tear Sol 15 ML BOT EA EYE PRN (15:30)
[2019-05-24] MEDS: cefTRIAXone\\ROCEPHIN 2 GM in Sodium Chloride 0.9% 100 ML IVPB SCH (16:25)
[2019-05-24] MEDS: Atorvastatin Calcium 40 MG TAB PO SCH (20:56)
[2019-05-25] MEDS: HYDROcodone/Acetaminophen 7.5/325 mg Tablet PO PRN ×2 (01:32→21:15)
[2019-05-25] MEDS: Sodium Chloride 0.9% 1,000 ML IV SCH ×2 (02:06→03:44)
[2019-05-25] MEDS: Levothyroxine Sodium 112 MCG TAB PO SCH (03:46)
[2019-05-25 06:05] LABS: #Eosinphils 0.2 thou/uL (0.0-0.7); #Monocytes 0.4 thou/uL (0.11-0.59); #Neutrophils 3.8 thou/uL (1.40-6.50); %Basophils 0.8 % (0.0-1.0); %Eosinophils 3.7 % (0.0-10.0); %Lymphocytes 18.5 % (21.0-51.0); Hemoglobin 9.4 g/dL (12.0-16.0); Mean Corpuscular HGB CONC 34.9 g/dL (32.0-36.0); Mean Corpuscular Hemoglobin 32.9 pg (27.0-31.0); Mean Corpuscular Volume 94.3 fL (78.0-98.0); Mean Platelet Volume 6.4 fL (7.4-10.4); Platelet Count 224 thou/uL (130-400); RBC Distribution Width 12.6 % (11.5-14.5); Red Blood Cell (RBC) Count 2.86 mill/uL (4.20-5.40); White Blood Cell (WBC) Count 5.4 thou/uL (4.8-10.8)
[2019-05-25 06:27] LABS: Anion Gap 12 mmol/L (10-20); BUN (Urea Nitrogen) 29 mg/dL (9.8-20.1); Calc. Creatinine Clearance 44 mL/min (70-130); Calcium 9.4 mg/dL (7.8-10.44); Carbon Dioxide 25 mmol/L (23-31); Chloride 96 mmol/L (98-107); Estimated GFR-MDRD 53; Glucose 82 mg/dL (83-110); Potassium 4.7 mmol/L (3.5-5.1); Sodium 128 mmol/L (136-145)
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
[2019-05-25] MEDS: Lisinopril 10 MG TAB PO SCH ×2 (09:26→20:53)
[2019-05-25] MEDS: Isosorbide Mononitrate (ER) 30 MG TAB PO SCH (09:27)
[2019-05-25] MEDS: Cyanocobalamin (Vitamin B-12) 1,000 MCG TAB PO SCH (09:27)
[2019-05-25] MEDS: Amlodipine 10 MG TAB PO SCH (09:27)
[2019-05-25] MEDS: Divalproex Sodium 125 mg Sprinkle Capsule PO SCH ×2 (09:27→20:53)
--- NOTE | 2019-05-25 14:02 | PDOC.HOSPP ---
- Subjective Encounter Date: 05/25/19 Encounter Time: 10:35 Subjective: no chest pain or sob or palp follows verbal stimuli - Objective Vital Signs & Weight: Vital Signs (12 hours) Temp Pulse Pulse Pulse Resp BP BP 05/25/19 12:13 97.8 F 73 20 05/25/19 09:27 81 05/25/19 09:26 159/70 H 05/25/19 08:36 76 76 153/64 H 05/25/19 07:58 98.5 F 81 20 05/25/19 03:40 98.3 F 77 20 BP BP BP Pulse Ox 05/25/19 12:13 109/55 L 97 05/25/19 09:27 05/25/19 09:26 05/25/19 08:36 178/52 H 05/25/19 07:58 153/64 H 96 05/25/19 03:40 178/74 H 98 Weight Weight 129 lb 9.6 oz I&O: 05/24/19 05/25/19 05/26/19 06:59 06:59 06:59 Intake Total 1300 1000 Output Total 2825 1300 Balance -1525 -300 Result Diagrams: 05/25/19 05:48 05/25/19 05:48 Hospitalist ROS - Medication Medications: Active Medications Generic Name Dose Route Start Last Admin Trade Name Freq PRN Reason Stop Dose Admin Hydrocodone Bitart/Acetaminophen 1 tab 05/23/19 07:36 05/23/19 09:50 [place] 5/325 PO 1 tab Q4H PRN Administration Moderate Pain (4-6) Hydrocodone Bitart/Acetaminophen 1 tab 05/23/19 07:36 05/25/19 01:32 [place] 7.5/325 PO 1 tab Q4H PRN Administration Severe Pain (7-10) Amlodipine Besylate 10 mg 05/23/19 09:00 05/25/19 09:27 Norvasc PO 10 mg DAILY ISAI Administration Artificial Tears 1 drop 05/24/19 15:30 05/24/19 16:16 Liquitears 15ml Bottle EA EYE 1 drop PRN PRN Administration Dry Eyes Atorvastatin Calcium 40 mg 05/23/19 21:00 05/24/19 20:56 Lipitor PO 40 mg HS ISAI Administration Cyanocobalamin 1,000 mcg 05/23/19 09:00 05/25/19 09:27 Vitamin B-12 PO 1,000 mcg DAILY ISAI Administration Divalproex Sodium 125 mg 05/23/19 09:00 05/25/19 09:27 Depakote Sprinkle PO 125 mg BID ISAI Administration Fluticasone Propionate 0 gm 05/23/19 17:06 05/23/19 20:02 Flonase Nasal [place] NASAL 2 spr DAILYPRN PRN Administration Allergies Hydrochlorothiazide 25 mg 05/23/19 09:00 05/24/19 08:17 Hydrochlorothiazide PO 25 mg DAILY ISAI Administration Isosorbide Mononitrate 30 mg 05/23/19 09:00 05/25/19 09:27 Imdur Er PO 30 mg DAILY ISAI Administration Levothyroxine Sodium 112 mcg 05/24/19 06:00 05/25/19 03:46 Synthroid PO 112 mcg 0600 ISAI Administration Lisinopril 10 mg 05/23/19 09:00 05/25/19 09:26 Zestril PO 10 mg BID ISAI Administration Metoprolol Succinate 25 mg 05/23/19 09:00 05/25/19 09:27 Toprol Xl PO 25 mg DAILY ISAI Administration Ondansetron HCl 4 mg 05/23/19 07:36 05/24/19 12:58 Zofran Odt PO 4 mg Q6H PRN Administration Nausea/Vomiting Pantoprazole Sodium 40 mg 05/23/19 09:00 05/25/19 09:26 Protonix PO 40 mg DAILY ISAI Administration Sodium Chloride 10 ml 05/23/19 21:00 05/25/19 09:27 Flush - Normal Saline IVF 10 ml Q12HR ISAI Administration - Exam General Appearance: NAD, awake alert Eye: PERRL, anicteric sclera ENT: normocephalic atraumatic, no oropharyngeal lesions Neck: supple, no JVD Heart: RRR, no murmur, normal peripheral pulses Respiratory: no wheezes, no rales Gastrointestinal: soft, non-tender, non-distended, normal bowel sounds Extremities: no cyanosis, no edema Neurological: CN's grossly intact, no focal deficits Hosp A/P (1) UTI (urinary tract infection) Status: Acute (2) Altered mental status Code(s): R41.82 - ALTERED MENTAL STATUS, UNSPECIFIED Status: Resolved (3) Chronic anemia Code(s): D64.9 - ANEMIA, UNSPECIFIED Status: Chronic (4) Dyslipidemia Code(s): E78.5 - HYPERLIPIDEMIA, UNSPECIFIED Status: Chronic (5) H/O: CVA (cerebrovascular accident) Code(s): Z86.73 - PRSNL HX OF TIA (TIA), AND CEREB INFRC W/O RESID DEFICITS Status: Chronic (6) HTN (hypertension) Code(s): I10 - ESSENTIAL (PRIMARY) HYPERTENSION Status: Chronic Qualifiers: Hypertension type: essential hypertension Qualified Code(s): I10 - Essential (primary) hypertension (7) Hypothyroidism Code(s): E03.9 - HYPOTHYROIDISM, UNSPECIFIED Status: Chronic Qualifiers: Hypothyroidism type: unspecified Qualified Code(s): E03.9 - Hypothyroidism , unspecified (8) Hyponatremia Code(s): E87.1 - HYPO-OSMOLALITY AND HYPONATREMIA Status: Chronic - Plan hemostable cognitively at baseline this am may dc anytime to rehab, has h/o rec falls continue psych meds her psychiatrist adv on depakote, norvasc, imdur, lisinopril, toprol xl, synthroid cipro bid for uti
[2019-05-25] MEDS: Ondansetron ODT 4 MG TAB PO PRN (18:31)
[2019-05-25] MEDS: Atorvastatin Calcium 40 MG TAB PO SCH (20:53)
[2019-05-25] MEDS: Ciprofloxacin 500 MG TAB PO SCH (20:53)
[2019-05-26] MEDS: HYDROcodone/Acetaminophen 7.5/325 mg Tablet PO PRN ×3 (01:03→10:51)
[2019-05-26] MEDS: diphenhydrAMINE 25 MG CAP PO PRN ×2 (04:41→10:51)
[2019-05-26] MEDS: Ciprofloxacin 500 MG TAB PO SCH (04:41)
[2019-05-26] MEDS: Levothyroxine Sodium 112 MCG TAB PO SCH (04:41)
[2019-05-26 05:36] LABS: #Basophils 0.1 thou/uL (0.0-0.2); #Eosinphils 0.2 thou/uL (0.0-0.7); #Lymphocytes 1.1 thou/uL (1.20-3.40); #Monocytes 0.4 thou/uL (0.11-0.59); %Eosinophils 2.8 % (0.0-10.0); %Lymphocytes 19.1 % (21.0-51.0); %Monocytes 6.2 % (0.0-10.0); %Neutrophils 70.9 % (42.0-75.0); Mean Corpuscular HGB CONC 34.8 g/dL (32.0-36.0); Mean Corpuscular Hemoglobin 32.5 pg (27.0-31.0); Mean Corpuscular Volume 93.2 fL (78.0-98.0); Mean Platelet Volume 6.7 fL (7.4-10.4); Platelet Count 213 thou/uL (130-400); RBC Distribution Width 12.5 % (11.5-14.5); Red Blood Cell (RBC) Count 3.09 mill/uL (4.20-5.40); White Blood Cell (WBC) Count 5.6 thou/uL (4.8-10.8)
[2019-05-26 06:01] LABS: Anion Gap 14 mmol/L (10-20); BUN (Urea Nitrogen) 29 mg/dL (9.8-20.1); Calc. Creatinine Clearance 49 mL/min (70-130); Calcium 10.2 mg/dL (7.8-10.44); Carbon Dioxide 27 mmol/L (23-31); Chloride 96 mmol/L (98-107); Estimated GFR-MDRD 59; Glucose 90 mg/dL (83-110); Potassium 4.9 mmol/L (3.5-5.1); Sodium 132 mmol/L (136-145)
[2019-05-26] MEDS: Cyanocobalamin (Vitamin B-12) 1,000 MCG TAB PO SCH (07:31)
[2019-05-26] MEDS: Lisinopril 10 MG TAB PO SCH (07:31)
[2019-05-26] MEDS: Amlodipine 10 MG TAB PO SCH (07:31)
[2019-05-26] MEDS: Isosorbide Mononitrate (ER) 30 MG TAB PO SCH (07:31)
[2019-05-26] MEDS: Divalproex Sodium 125 mg Sprinkle Capsule PO SCH (08:34)
[2019-05-26 12:27] VITALS: BP 148/70; TEMP 97.4
--- NOTE | 2019-05-26 15:01 | DIS ---
DATE OF ADMISSION: 05/22/2019 DATE OF DISCHARGE: 05/26/2019 DISCHARGE DISPOSITION: To inpatient rehab. PRIMARY DISCHARGE DIAGNOSES: Urinary tract infection; acute encephalopathy, metabolic in nature, resolved; chronic anemia; dyslipidemia; history of prior CVA with no residual defects; hypertension; underlying psychiatric disorder, likely bipolar; hypothyroidism; and hyponatremia, which is chronic. PROCEDURES DONE DURING HOSPITALIZATION: The patient has had chest x-ray, two view done, which showed no acute cardiopulmonary abnormality. CT brain without contrast showed no acute intracranial abnormality. CT cervical spine showed no evidence of acute osseous abnormality of C-spine. Urine culture grew E coli sensitive to all antibiotics. Blood cultures x2, no growth. H and H 10 and 28, platelet count 213, MCV is 93, white count of 5.6. Discharge BUN and creatinine are 29 and 0.9. Admitting BUN and creatinine were 44 and 1.1. Serum sodium has ranged from 128 to 132. Urine drug screen was negative. DISCHARGE MEDICATIONS: 1. Norvasc 10 mg daily. 2. Lipitor 40 mg p.o. q.h.s. 3. Vitamin B12 of 1000 mcg p.o. daily. 4. Depakote 125 mg p.o. twice daily. 5. Hydrochlorothiazide 25 mg daily. 6. Synthroid 112 mcg p.o. daily. 7. Toprol-XL 25 mg daily. 8. Myrbetriq 25 mg p.o. daily. 9. Protonix 40 mg p.o. daily. 10. Ciprofloxacin 500 mg p.o. twice daily for another 3 days. 11. Imdur extended release 30 mg p.o. daily. 12. Lisinopril 10 mg twice daily. ALLERGIES: TO LYRICA, SULFA, TETRACYCLINE, AND BUPROPION. DISCHARGE PLAN: The patient is being discharged to inpatient rehab for further recuperation. BRIEF COURSE DURING HOSPITALIZATION: The patient initially was brought to emergency room for altered mental state. She was also found to have had urinary tract infection. The patient had moderate dehydration as well with mild acute kidney injury, all of which got resolved with fluid resuscitation. The patient has chronic hyponatremia. She also has underlying mood disorder and has been hospitalized to inpatient psychiatric facilities in the past. Likely, the patient has bipolar disorder and is on Depakote for the same. She has remained hemodynamically stable. She has history of falls and is being discharged to inpatient rehab for further recuperation prior to going home. She needs to continue ciprofloxacin for UTI for another 3 days. The patient has had recent change in her Synthroid dose and needs to have repeat TSH levels drawn in 4 to 5 weeks from the time of change of dose. She is hemodynamically stable and cognitively at her baseline prior to discharge. Please note, I have seen and examined the patient on the day of discharge. A total of 35 minutes was spent on discharge plan. Job ID: [id number] MTDD
--- NOTE | 2019-05-29 15:55 | EKG ---
Test Reason : Blood Pressure : / mmHG Vent. Rate : 084 BPM Atrial Rate : 084 BPM P-R Int : 162 ms QRS Dur : 084 ms QT Int : 382 ms P-R-T Axes : 050 017 039 degrees QTc Int : 451 ms Normal sinus rhythm Septal infarct , age undetermined Abnormal ECG Confirmed by WILLI KRISHNA ([id number]), department editor SEMAJ VAZQUEZ ([id number]) on 05/29/2019 3:54:34 PM Referred By: Confirmed By:WILLI KRISHNA
== END 2019-05-26 15:01 ==
LOC: ERS 14:39 → 2SW 19:07
PROVIDERS: ADMIT Internal Medicine; ATTEND Internal Medicine
DX: G93.41 Metabolic encephalopathy (principal); N39.0 Urinary tract infection, site not specified; D64.9 Anemia, unspecified; I10 Essential (primary) hypertension; E78.5 Hyperlipidemia, unspecified; F39 Unspecified mood [affective] disorder; G40.909 Epilepsy, unspecified, not intractable, without status epilepticus; E03.9 Hypothyroidism, unspecified; E87.1 Hypo-osmolality and hyponatremia; E86.0 Dehydration; R29.6 Repeated falls; F17.210 Nicotine dependence, cigarettes, uncomplicated; Z79.899 Other long term (current) drug therapy; Z88.1 Allergy status to other antibiotic agents; Z88.2 Allergy status to sulfonamides; Z88.8 Allergy status to other drugs, medicaments and biological substances; Z86.73 Personal history of transient ischemic attack (TIA), and cerebral infarction without residual deficits
CPT/HCPCS: 36415; 70450; 71046; 72125; 80048; 80053; 80164; 80306; 80307; 81003; 83605; 83930; 83935; 84300; 84443; 84484; 85025; 87040; 87077; 87086; 87186; 93005; 96361; 96374; 96376; G0378; J0696; J3490; Q0162; Q0163

== ENCOUNTER 2022-01-24 14:25 | Inpatient (IN) | payer MEDICARE, BC, MEDICAID ==
[2022-01-24] MEDS ORDERED: Bisacodyl 5 MG TAB PO PRN (17:34)
[2022-01-24] MEDS ORDERED: Ondansetron PF 4 MG/2 ML Vial IVP PRN (17:34)
[2022-01-24] MEDS ORDERED: Labetalol HCl 100 MG/20 ML VIAL SLOW IVP PRN (17:45)
[2022-01-24 17:49] VITALS: BMI 27.6
[2022-01-24] MEDS ORDERED: Nitroglycerin 0.4 MG TAB (25 Tab Bottle) SL PRN (18:22)
[2022-01-24] MEDS ORDERED: CLONIDINE HCL 0.1 MG PO PRN (20:06)
[2022-01-24] MEDS ORDERED: Pantoprazole 40 MG VIAL IVP SCH (21:00)
[2022-01-24] MEDS ORDERED: Furosemide 20 MG/2 ML VIAL SLOW IVP SCH (21:00)
[2022-01-24] MEDS: busPIRone HCl 10 MG TAB PO SCH (21:16)
[2022-01-24] MEDS: Doxepin HCl 25 MG CAP PO SCH (21:16)
[2022-01-24] MEDS: Metoprolol Tartrate 100 MG TAB PO SCH (21:17)
[2022-01-24] MEDS: Ibuprofen 200 MG TAB PO SCH (21:17)
[2022-01-24] MEDS: Valproic Acid 250 MG CAP PO SCH (21:17)
[2022-01-24] MEDS: Mirtazapine 30 MG TAB PO SCH (21:18)
[2022-01-24] MEDS: Heparin 5,000 UNITS/ML VIAL SC SCH (21:19)
[2022-01-24 21:32] LABS: Troponin I 0.098 ng/mL (< 0.028)
[2022-01-25 04:58] LABS: ALT (SGPT) 8 U/L (8-55); AST (SGOT) 12 U/L (5-34); Albumin 3.1 g/dL (3.4-4.8); Alkaline Phosphatase 32 U/L (40-110); Anion Gap 14 mmol/L (10-20); BUN (Urea Nitrogen) 31 mg/dL (9.8-20.1); Bilirubin, Total 0.6 mg/dL (0.2-1.2); Calc. Creatinine Clearance 33 mL/min (70-130); Calcium 8.6 mg/dL (7.8-10.44); Carbon Dioxide 21 mmol/L (23-31); Cardiac Risk 3.6 (Less than 4.5); Chloride 109 mmol/L (98-107); Cholesterol 138 mg/dl (< 200 Desired); Globulin 1.8 g/dL (2.4-3.5); Glucose 104 mg/dL (83-110); HDL Cholesterol 38 mg/dL (>60 Neg Risk); LDL Cholesterol, Calculated 84 mg/dL; Potassium 3.7 mmol/L (3.5-5.1); Protein, Total 4.9 g/dL (5.8-8.1); Sodium 140 mmol/L (136-145); Triglycerides 81 mg/dL (Less than 150)
[2022-01-25] MEDS: Ibuprofen 200 MG TAB PO SCH (05:19)
[2022-01-25] MEDS: Levothyroxine Sodium 25 MCG TAB PO SCH (05:20)
[2022-01-25 05:21] LABS: #Eosinphils 0.1 thou/uL (0.0-0.7); #Lymphocytes 0.6 thou/uL (1.20-3.40); #Monocytes 0.7 thou/uL (0.11-0.59); %Eosinophils 2.1 % (0.0-10.0); %Lymphocytes 9.7 % (21.0-51.0); %Monocytes 10.7 % (0.0-10.0); %Neutrophils 77.5 % (42.0-75.0); Hemoglobin 10.4 g/dL (12.0-16.0); Mean Corpuscular HGB CONC 32.5 g/dL (32.0-36.0); Mean Corpuscular Hemoglobin 32.3 pg (27.0-31.0); Mean Corpuscular Volume 99.6 fL (78.0-98.0); Mean Platelet Volume 7.1 fL (7.4-10.4); Platelet Count 100 thou/uL (130-400); RBC Distribution Width 13.1 % (11.5-14.5); Red Blood Cell (RBC) Count 3.21 mill/uL (4.20-5.40); White Blood Cell (WBC) Count 6.4 thou/uL (4.8-10.8)
[2022-01-25] MEDS ORDERED: Furosemide 20 MG/2 ML VIAL SLOW IVP SCH (06:00)
[2022-01-25] MEDS ORDERED: Magnesium 2 GM/50 ML(in water) 2 GM in Premix Bag 1 BAG IVPB SCH (09:15)
[2022-01-25] MEDS: Senokot S 8.6-50 MG TAB PO PRN (10:40)
[2022-01-25] MEDS: Valsartan 80 MG TAB PO SCH (10:41)
[2022-01-25] MEDS: busPIRone HCl 10 MG TAB PO SCH ×3 (10:41→20:26)
[2022-01-25] MEDS: Pantoprazole 40 MG VIAL IVP SCH (10:41)
[2022-01-25] MEDS: Metoprolol Tartrate 100 MG TAB PO SCH ×2 (10:42→20:25)
[2022-01-25] MEDS: Valproic Acid 250 MG CAP PO SCH ×2 (10:42→20:26)
[2022-01-25] MEDS: Amlodipine 10 MG TAB PO SCH (10:42)
[2022-01-25] MEDS: Aripiprazole 15 MG TAB PO SCH (10:42)
[2022-01-25] MEDS: Heparin 5,000 UNITS/ML VIAL SC SCH (11:05)
[2022-01-25] MEDS: Mirtazapine 30 MG TAB PO SCH (20:25)
[2022-01-25] MEDS: Doxepin HCl 25 MG CAP PO SCH (20:25)
[2022-01-25] MEDS: Senokot S 8.6-50 MG TAB PO SCH (20:25)
[2022-01-25] MEDS ORDERED: Bisacodyl 10 MG SUPP PR SCH (21:00)
[2022-01-26 04:32] LABS: #Eosinphils 0.2 thou/uL (0.0-0.7); #Lymphocytes 0.7 thou/uL (1.20-3.40); #Monocytes 0.7 thou/uL (0.11-0.59); #Neutrophils 5.4 thou/uL (1.40-6.50); %Basophils 0.2 % (0.0-1.0); %Eosinophils 3.4 % (0.0-10.0); %Lymphocytes 9.3 % (21.0-51.0); %Monocytes 10.4 % (0.0-10.0); %Neutrophils 76.8 % (42.0-75.0); Hemoglobin 10.7 g/dL (12.0-16.0); Mean Corpuscular Volume 99.9 fL (78.0-98.0); Mean Platelet Volume 7.9 fL (7.4-10.4); Platelet Count 144 thou/uL (130-400); RBC Distribution Width 12.9 % (11.5-14.5); Red Blood Cell (RBC) Count 3.26 mill/uL (4.20-5.40)
[2022-01-26 04:48] LABS: Anion Gap 15 mmol/L (10-20); BUN (Urea Nitrogen) 30 mg/dL (9.8-20.1); Calc. Creatinine Clearance 32 mL/min (70-130); Calcium 9.6 mg/dL (7.8-10.44); Carbon Dioxide 22 mmol/L (23-31); Chloride 105 mmol/L (98-107); Glucose 100 mg/dL (83-110); Magnesium 2.5 mg/dL (1.6-2.6); Potassium 3.7 mmol/L (3.5-5.1); Sodium 138 mmol/L (136-145)
[2022-01-26 04:49] LABS: Troponin I 0.043 ng/mL (< 0.028)
[2022-01-26] MEDS: Levothyroxine Sodium 25 MCG TAB PO SCH (05:29)
[2022-01-26] MEDS ORDERED: Polyethylene Glycol 3350 17 GM Packet PO SCH (09:00)
[2022-01-26] MEDS: Pantoprazole 40 MG VIAL IVP SCH (10:01)
[2022-01-26] MEDS: Valsartan 80 MG TAB PO SCH (10:01)
[2022-01-26] MEDS: busPIRone HCl 10 MG TAB PO SCH ×3 (10:01→21:04)
[2022-01-26] MEDS: Valproic Acid 250 MG CAP PO SCH ×2 (10:01→21:04)
[2022-01-26] MEDS: Amlodipine 10 MG TAB PO SCH (10:02)
[2022-01-26] MEDS: Senokot S 8.6-50 MG TAB PO SCH ×2 (10:02→21:04)
[2022-01-26] MEDS: Metoprolol Tartrate 100 MG TAB PO SCH ×2 (10:02→21:04)
[2022-01-26] MEDS: Aripiprazole 15 MG TAB PO SCH (10:02)
[2022-01-26] MEDS: Melatonin 3 MG TAB PO PRN (21:03)
[2022-01-26] MEDS: Doxepin HCl 25 MG CAP PO SCH (21:04)
[2022-01-26] MEDS: Mirtazapine 30 MG TAB PO SCH (21:04)
[2022-01-26] MEDS: Bisacodyl 10 MG SUPP PR SCH (21:05)
[2022-01-26] MEDS: Polyethylene Glycol 3350 17 GM Packet PO SCH (21:05)
[2022-01-27 05:38] LABS: #Eosinphils 0.2 thou/uL (0.0-0.7); #Lymphocytes 0.6 thou/uL (1.20-3.40); #Monocytes 0.6 thou/uL (0.11-0.59); #Neutrophils 3.6 thou/uL (1.40-6.50); %Basophils 0.5 % (0.0-1.0); %Eosinophils 4.5 % (0.0-10.0); %Monocytes 11.2 % (0.0-10.0); %Neutrophils 71.8 % (42.0-75.0); Hemoglobin 9.4 g/dL (12.0-16.0); Mean Corpuscular HGB CONC 34.1 g/dL (32.0-36.0); Mean Corpuscular Hemoglobin 33.4 pg (27.0-31.0); Mean Corpuscular Volume 97.8 fL (78.0-98.0); Mean Platelet Volume 7.9 fL (7.4-10.4); Platelet Count 136 thou/uL (130-400); RBC Distribution Width 12.6 % (11.5-14.5); Red Blood Cell (RBC) Count 2.81 mill/uL (4.20-5.40)
[2022-01-27 05:50] LABS: Anion Gap 13 mmol/L (10-20); BUN (Urea Nitrogen) 29 mg/dL (9.8-20.1); Calc. Creatinine Clearance 30 mL/min (70-130); Calcium 9.2 mg/dL (7.8-10.44); Carbon Dioxide 24 mmol/L (23-31); Chloride 103 mmol/L (98-107); Glucose 144 mg/dL (83-110); Potassium 3.7 mmol/L (3.5-5.1); Sodium 136 mmol/L (136-145)
[2022-01-27] MEDS: Levothyroxine Sodium 25 MCG TAB PO SCH (05:51)
[2022-01-27] MEDS: Amlodipine 10 MG TAB PO SCH (09:00)
[2022-01-27] MEDS: Aripiprazole 15 MG TAB PO SCH (09:01)
[2022-01-27] MEDS: busPIRone HCl 10 MG TAB PO SCH ×3 (09:01→21:45)
[2022-01-27] MEDS: Metoprolol Tartrate 100 MG TAB PO SCH ×2 (09:01→21:45)
[2022-01-27] MEDS: Valproic Acid 250 MG CAP PO SCH ×2 (09:02→21:45)
[2022-01-27] MEDS: Polyethylene Glycol 3350 17 GM Packet PO SCH ×2 (09:02→21:47)
[2022-01-27] MEDS: Senokot S 8.6-50 MG TAB PO SCH ×2 (09:02→21:47)
[2022-01-27] MEDS: Valsartan 80 MG TAB PO SCH (09:03)
[2022-01-27] MEDS ORDERED: Sodium Chloride 0.65% Nasal 44 ML BOT EA NARE PRN (09:57)
[2022-01-27] MEDS: Artificial Tear Sol 15 ML BOT EA EYE SCH ×3 (12:11→21:46)
[2022-01-27] MEDS: Doxepin HCl 25 MG CAP PO SCH (21:45)
[2022-01-27] MEDS: Mirtazapine 30 MG TAB PO SCH (21:45)
[2022-01-27] MEDS: Bisacodyl 10 MG SUPP PR SCH (21:47)
[2022-01-27] MEDS: Acetaminophen 325 MG TAB PO PRN (21:57)
[2022-01-28] MEDS: Melatonin 3 MG TAB PO PRN (00:01)
[2022-01-28 04:57] LABS: #Eosinphils 0.2 thou/uL (0.0-0.7); #Lymphocytes 0.7 thou/uL (1.20-3.40); #Monocytes 0.5 thou/uL (0.11-0.59); %Basophils 0.9 % (0.0-1.0); %Eosinophils 4.9 % (0.0-10.0); %Lymphocytes 15.4 % (21.0-51.0); %Monocytes 11.7 % (0.0-10.0); %Neutrophils 67.1 % (42.0-75.0); Hemoglobin 9.5 g/dL (12.0-16.0); Mean Corpuscular HGB CONC 33.2 g/dL (32.0-36.0); Mean Corpuscular Volume 99.2 fL (78.0-98.0); Mean Platelet Volume 7.6 fL (7.4-10.4); Platelet Count 150 thou/uL (130-400); RBC Distribution Width 12.5 % (11.5-14.5); Red Blood Cell (RBC) Count 2.87 mill/uL (4.20-5.40); White Blood Cell (WBC) Count 4.5 thou/uL (4.8-10.8)
[2022-01-28 05:20] LABS: Anion Gap 15 mmol/L (10-20); BUN (Urea Nitrogen) 29 mg/dL (9.8-20.1); Calc. Creatinine Clearance 33 mL/min (70-130); Calcium 9.4 mg/dL (7.8-10.44); Carbon Dioxide 21 mmol/L (23-31); Chloride 105 mmol/L (98-107); Glucose 107 mg/dL (83-110); Potassium 3.9 mmol/L (3.5-5.1); Sodium 137 mmol/L (136-145)
[2022-01-28] MEDS: Levothyroxine Sodium 25 MCG TAB PO SCH (05:43)
[2022-01-28] MEDS: busPIRone HCl 10 MG TAB PO SCH ×2 (09:31→14:18)
[2022-01-28] MEDS: Artificial Tear Sol 15 ML BOT EA EYE SCH ×2 (09:31→12:53)
[2022-01-28] MEDS: Valsartan 80 MG TAB PO SCH (09:31)
[2022-01-28] MEDS: Valproic Acid 250 MG CAP PO SCH (09:32)
[2022-01-28] MEDS: Metoprolol Tartrate 100 MG TAB PO SCH (09:32)
[2022-01-28] MEDS: Aripiprazole 15 MG TAB PO SCH (09:33)
[2022-01-28] MEDS: Amlodipine 10 MG TAB PO SCH (09:33)
[2022-01-28] MEDS: Polyethylene Glycol 3350 17 GM Packet PO SCH (09:36)
[2022-01-28] MEDS: Senokot S 8.6-50 MG TAB PO PRN (09:41)
[2022-01-28] MEDS: Senokot S 8.6-50 MG TAB PO SCH (09:41)
[2022-01-28] MEDS: Acetaminophen 325 MG TAB PO PRN ×2 (09:49→14:18)
[2022-01-28 12:52] VITALS: BP 160/75; TEMP 98.6
== END 2022-01-28 15:13 | DRG 315 ==
LOC: 2NO 16:50
PROVIDERS: ADMIT Family Medicine; ATTEND Internal Medicine
DX: I31.3 Pericardial effusion (noninflammatory) (principal); I48.21 Permanent atrial fibrillation; I47.2 Ventricular tachycardia; I13.0 Hypertensive heart and chronic kidney disease with heart failure and stage 1 through stage 4 chronic kidney disease, or unspecified chronic kidney disease; E03.9 Hypothyroidism, unspecified; M32.9 Systemic lupus erythematosus, unspecified; F03.90 Unspecified dementia, unspecified severity, without behavioral disturbance, psychotic disturbance, mood disturbance, and anxiety; E78.5 Hyperlipidemia, unspecified; F32.A Depression, unspecified; N18.2 Chronic kidney disease, stage 2 (mild); I50.9 Heart failure, unspecified; D64.9 Anemia, unspecified; K59.00 Constipation, unspecified; D69.6 Thrombocytopenia, unspecified; I31.9 Disease of pericardium, unspecified; E83.52 Hypercalcemia; Z88.2 Allergy status to sulfonamides; Z88.8 Allergy status to other drugs, medicaments and biological substances; Z88.1 Allergy status to other antibiotic agents; Z79.82 Long term (current) use of aspirin; Z79.899 Other long term (current) drug therapy; Z90.711 Acquired absence of uterus with remaining cervical stump; I25.2 Old myocardial infarction; Z86.73 Personal history of transient ischemic attack (TIA), and cerebral infarction without residual deficits; Z90.49 Acquired absence of other specified parts of digestive tract; Z90.89 Acquired absence of other organs; Z87.891 Personal history of nicotine dependence
CPT/HCPCS: 36415; 80048; 80053; 80061; 83735; 84443; 84484; 85025; 86140; 93306; C9113; J1644; J1940; J3475

== ENCOUNTER 2022-02-09 05:30 | Inpatient (IN) | payer MEDICARE, BC, MEDICAID ==
[2022-02-09] MEDS ORDERED: Aspirin 325 MG TAB ONE (06:21)
[2022-02-09 06:32] LABS: #Lymphocytes 0.4 thou/uL (1.20-3.40); #Monocytes 0.7 thou/uL (0.11-0.59); #Neutrophils 7.7 thou/uL (1.40-6.50); %Basophils 0.4 % (0.0-1.0); %Eosinophils 0.5 % (0.0-10.0); %Lymphocytes 4.5 % (21.0-51.0); %Monocytes 8.1 % (0.0-10.0); %Neutrophils 86.6 % (42.0-75.0); Hemoglobin 10.2 g/dL (12.0-16.0); Mean Corpuscular Hemoglobin 32.5 pg (27.0-31.0); Mean Corpuscular Volume 95.6 fL (78.0-98.0); Mean Platelet Volume 7.7 fL (7.4-10.4); Platelet Count 182 thou/uL (130-400); RBC Distribution Width 13.9 % (11.5-14.5); Red Blood Cell (RBC) Count 3.12 mill/uL (4.20-5.40); White Blood Cell (WBC) Count 8.9 thou/uL (4.8-10.8)
[2022-02-09 07:01] LABS: ALT (SGPT) 13 U/L (8-55); AST (SGOT) 22 U/L (5-34); Albumin 4.1 g/dL (3.4-4.8); Alkaline Phosphatase 49 U/L (40-110); Anion Gap 14 mmol/L (10-20); BUN (Urea Nitrogen) 38 mg/dL (9.8-20.1); Bilirubin, Total 0.7 mg/dL (0.2-1.2); Calc. Creatinine Clearance 0 mL/min (70-130); Calcium 9.9 mg/dL (7.8-10.44); Carbon Dioxide 24 mmol/L (23-31); Chloride 98 mmol/L (98-107); Globulin 3.1 g/dL (2.4-3.5); Glucose 117 mg/dL (83-110); Potassium 4.4 mmol/L (3.5-5.1); Protein, Total 7.2 g/dL (5.8-8.1); Sodium 132 mmol/L (136-145)
[2022-02-09 07:31] LABS: CKMB 2.2 ng/mL (0-6.6)
[2022-02-09 09:34] LABS: Troponin I 0.345 ng/mL (< 0.028)
[2022-02-09 10:10] VITALS: BMI 26.9
[2022-02-09] MEDS ORDERED: Sodium Chloride 0.9% 1,000 ML IV SCH (11:45)
[2022-02-09] MEDS ORDERED: Nitroglycerin 0.4 MG TAB (25 Tab Bottle) SL PRN (11:49)
[2022-02-09] MEDS ORDERED: Ondansetron ODT 4 MG TAB PO PRN (11:51)
[2022-02-09] MEDS ORDERED: Ondansetron PF 4 MG/2 ML Vial IVP PRN (11:51)
[2022-02-09] MEDS ORDERED: Calcium Carbonate 500 MG ChewTAB PO PRN (11:51)
[2022-02-09] MEDS ORDERED: Polyethylene Glycol 3350 17 GM Packet PO PRN (11:56)
[2022-02-09] MEDS ORDERED: cloNIDine 0.1 MG TAB PO PRN (11:58)
[2022-02-09 12:48] LABS: INR-International Normal Ratio 1.1; Prothrombin Time 14.5 sec (12.0-14.7)
[2022-02-09 12:49] LABS: PTT 41.4 sec (22.9-36.1)
[2022-02-09] MEDS ORDERED: fentaNYL Citrate/PF 100 MCG/2 ML SYRINGE ONE (12:59)
[2022-02-09] MEDS ORDERED: Ketamine 50 MG/ML (10ML VIAL) ONE (12:59)
[2022-02-09] MEDS ORDERED: PHENYLEPHRINE-NS 100 MCG/ML 10 ML SYRINGE ONE (13:00)
[2022-02-09] MEDS ORDERED: Phenylephrine 10 MG/ML VIAL ONE (13:00)
[2022-02-09 13:08] LABS: Critical Call Chem Troponin I RESULT DECREASING; Troponin I 0.327 ng/mL (< 0.028)
[2022-02-09] MEDS ORDERED: Albumin 25% 25 GM/100 ML BOT IVPB SCH (13:15)
[2022-02-09] MEDS ORDERED: Sodium Chloride 0.9% 100 ML ONE (13:40)
[2022-02-09] MEDS ORDERED: CEFAZOLIN 1 GM VIAL ONE (13:40)
[2022-02-09] MEDS ORDERED: Lidocaine 1% PF 5 ML VIAL ONE (14:03)
[2022-02-09] MEDS ORDERED: ePHEDrine 50 MG/ML VIAL ONE (14:03)
[2022-02-09] MEDS ORDERED: Ondansetron PF 4 MG/2 ML Vial ONE (14:03)
[2022-02-09] MEDS ORDERED: Succinylcholine 200 MG/10 ml SYRINGE FS ONE (14:03)
[2022-02-09] MEDS ORDERED: Bupivacaine PF 0.5% 30 ML VIAL ONE (14:13)
[2022-02-09] MEDS ORDERED: EPINEPHrine 1 MG/ML AMP ONE (14:13)
[2022-02-09 15:48] LABS: SARS-CoV-2 PCR by NAA Not Detected (NotDetected)
[2022-02-09 19:58] LABS: Bacteria/HPF 2+ HPF (None Seen); Bilirubin Negative (Negative); Blood, Urine Negative (Negative); Clarity Clear (Clear); Glucose, Urine (Dipstick) Normal (Negative); Ketone, Urine Negative (Negative); Leukocyte Negative Leu/uL (Negative); Nitrite Negative (Negative); Protein, Urine (Dipstick) 100 mg/dL (Neg-Trace); RBC/HPF 0-3 HPF (0-3); Specific Gravity, Urine 1.018 (1.002-1.036); Squamous Epithelial 0-3 HPF (0-3); Urobilinogen Normal mg/dL (Less than 2); WBC/HPF 0-3 HPF (0-3); pH, Urine 6.5 (5.0-9.0)
[2022-02-09] MEDS: Colchicine 0.6 MG TAB PO SCH (20:29)
[2022-02-09] MEDS: Valproic Acid 250 MG CAP PO SCH (20:30)
[2022-02-09] MEDS: Artificial Tear Sol 15 ML BOT EA EYE PRN (20:30)
[2022-02-09] MEDS: Fluticasone Propionate Nasal Spray 16 gm Bottle NASAL SCH (20:30)
[2022-02-09] MEDS: Senokot S 8.6-50 MG TAB PO SCH (20:30)
[2022-02-09] MEDS: Metoprolol Tartrate 25 MG TAB PO SCH (20:30)
[2022-02-09] MEDS: traMADol HCl 50 MG TAB PO PRN (20:31)
[2022-02-09] MEDS ORDERED: Enoxaparin Sodium 30 MG/0.3 ML SYRINGE SC SCH (21:00)
[2022-02-10] MEDS: traMADol HCl 50 MG TAB PO PRN ×2 (01:07→05:49)
[2022-02-10 04:56] LABS: #Eosinphils 0.1 thou/uL (0.0-0.7); #Lymphocytes 0.6 thou/uL (1.20-3.40); #Monocytes 0.7 thou/uL (0.11-0.59); #Neutrophils 5.3 thou/uL (1.40-6.50); %Basophils 0.5 % (0.0-1.0); %Eosinophils 1.3 % (0.0-10.0); %Lymphocytes 8.5 % (21.0-51.0); %Neutrophils 79.7 % (42.0-75.0); Hemoglobin 8.1 g/dL (12.0-16.0); Mean Corpuscular HGB CONC 32.7 g/dL (32.0-36.0); Mean Platelet Volume 7.6 fL (7.4-10.4); Platelet Count 149 thou/uL (130-400); RBC Distribution Width 13.8 % (11.5-14.5); Red Blood Cell (RBC) Count 2.53 mill/uL (4.20-5.40); White Blood Cell (WBC) Count 6.7 thou/uL (4.8-10.8)
[2022-02-10] MEDS: Levothyroxine Sodium 50 MCG TAB PO SCH (05:49)
[2022-02-10 05:50] LABS: ALT (SGPT) Less than 7 U/L (8-55); AST (SGOT) 13 U/L (5-34); Albumin 2.9 g/dL (3.4-4.8); Alkaline Phosphatase 39 U/L (40-110); Anion Gap 13 mmol/L (10-20); BUN (Urea Nitrogen) 34 mg/dL (9.8-20.1); Bilirubin, Total 0.4 mg/dL (0.2-1.2); Calc. Creatinine Clearance 26 mL/min (70-130); Carbon Dioxide 21 mmol/L (23-31); Chloride 102 mmol/L (98-107); Globulin 2.3 g/dL (2.4-3.5); Glucose 96 mg/dL (83-110); Protein, Total 5.2 g/dL (5.8-8.1); Sodium 132 mmol/L (136-145)
[2022-02-10] MEDS: Colchicine 0.6 MG TAB PO SCH ×2 (09:17→20:09)
[2022-02-10] MEDS: Aspirin 81 mg Enteric Coated Tablet PO SCH (09:17)
[2022-02-10] MEDS: Metoprolol Tartrate 25 MG TAB PO SCH ×2 (09:17→20:10)
[2022-02-10] MEDS: Senokot S 8.6-50 MG TAB PO SCH ×2 (09:17→20:10)
[2022-02-10] MEDS: Valproic Acid 250 MG CAP PO SCH ×2 (09:20→20:10)
[2022-02-10] MEDS: Acetaminophen 325 MG TAB PO PRN ×2 (09:23→20:10)
[2022-02-10] MEDS: Artificial Tear Sol 15 ML BOT EA EYE PRN (20:10)
[2022-02-10] MEDS: Fluticasone Propionate Nasal Spray 16 gm Bottle NASAL SCH (20:10)
[2022-02-10] MEDS ORDERED: Heparin 5,000 UNITS/ML VIAL SC SCH (21:00)
[2022-02-11 04:24] LABS: #Eosinphils 0.1 thou/uL (0.0-0.7); #Lymphocytes 0.5 thou/uL (1.20-3.40); #Monocytes 0.6 thou/uL (0.11-0.59); #Neutrophils 4.3 thou/uL (1.40-6.50); %Basophils 0.4 % (0.0-1.0); %Eosinophils 2.5 % (0.0-10.0); %Lymphocytes 8.2 % (21.0-51.0); %Monocytes 10.3 % (0.0-10.0); %Neutrophils 78.6 % (42.0-75.0); Hemoglobin 7.8 g/dL (12.0-16.0); Mean Corpuscular HGB CONC 33.8 g/dL (32.0-36.0); Mean Corpuscular Hemoglobin 33.3 pg (27.0-31.0); Mean Corpuscular Volume 98.6 fL (78.0-98.0); Mean Platelet Volume 7.4 fL (7.4-10.4); Platelet Count 139 thou/uL (130-400); RBC Distribution Width 13.8 % (11.5-14.5); Red Blood Cell (RBC) Count 2.34 mill/uL (4.20-5.40); White Blood Cell (WBC) Count 5.5 thou/uL (4.8-10.8)
[2022-02-11 04:43] LABS: Anion Gap 11 mmol/L (10-20); BUN (Urea Nitrogen) 32 mg/dL (9.8-20.1); Calc. Creatinine Clearance 27 mL/min (70-130); Calcium 8.9 mg/dL (7.8-10.44); Carbon Dioxide 24 mmol/L (23-31); Chloride 103 mmol/L (98-107); Glucose 99 mg/dL (83-110); Potassium 4.2 mmol/L (3.5-5.1); Sodium 134 mmol/L (136-145)
[2022-02-11] MEDS: Levothyroxine Sodium 50 MCG TAB PO SCH (05:22)
[2022-02-11] MEDS: Artificial Tear Sol 15 ML BOT EA EYE PRN ×2 (05:24→21:47)
[2022-02-11] MEDS: Senokot S 8.6-50 MG TAB PO SCH ×2 (09:13→21:47)
[2022-02-11] MEDS: Valproic Acid 250 MG CAP PO SCH ×2 (09:14→21:47)
[2022-02-11] MEDS: Furosemide 20 MG/2 ML VIAL SLOW IVP SCH (09:14)
[2022-02-11] MEDS: Colchicine 0.6 MG TAB PO SCH ×2 (09:14→21:45)
[2022-02-11] MEDS: Metoprolol Tartrate 25 MG TAB PO SCH ×2 (09:14→21:47)
[2022-02-11] MEDS: Aspirin 81 mg Enteric Coated Tablet PO SCH (09:14)
[2022-02-11] MEDS ORDERED: Ibuprofen 800 MG TAB PO SCH (11:45)
[2022-02-11] MEDS: Ibuprofen 800 MG TAB PO SCH (21:46)
[2022-02-11] MEDS: Fluticasone Propionate Nasal Spray 16 gm Bottle NASAL SCH (21:46)
[2022-02-12 04:07] LABS: #Eosinphils 0.2 thou/uL (0.0-0.7); #Lymphocytes 0.6 thou/uL (1.20-3.40); #Monocytes 0.4 thou/uL (0.11-0.59); #Neutrophils 3.9 thou/uL (1.40-6.50); %Basophils 0.2 % (0.0-1.0); %Eosinophils 3.6 % (0.0-10.0); %Lymphocytes 11.3 % (21.0-51.0); %Monocytes 8.3 % (0.0-10.0); %Neutrophils 76.7 % (42.0-75.0); Hemoglobin 7.7 g/dL (12.0-16.0); Mean Corpuscular HGB CONC 32.4 g/dL (32.0-36.0); Mean Corpuscular Volume 98.7 fL (78.0-98.0); Platelet Count 142 thou/uL (130-400); RBC Distribution Width 13.5 % (11.5-14.5); Red Blood Cell (RBC) Count 2.39 mill/uL (4.20-5.40); White Blood Cell (WBC) Count 5.1 thou/uL (4.8-10.8)
[2022-02-12 04:31] LABS: Anion Gap 11 mmol/L (10-20); BUN (Urea Nitrogen) 39 mg/dL (9.8-20.1); Calc. Creatinine Clearance 23 mL/min (70-130); Calcium 8.7 mg/dL (7.8-10.44); Carbon Dioxide 25 mmol/L (23-31); Chloride 103 mmol/L (98-107); Glucose 104 mg/dL (83-110); Potassium 3.9 mmol/L (3.5-5.1); Sodium 135 mmol/L (136-145)
[2022-02-12] MEDS: Levothyroxine Sodium 50 MCG TAB PO SCH (05:51)
[2022-02-12] MEDS ORDERED: Colchicine 0.6 MG TAB PO SCH (09:00)
[2022-02-12] MEDS: Ibuprofen 800 MG TAB PO SCH (10:14)
[2022-02-12] MEDS: Furosemide 20 MG/2 ML VIAL SLOW IVP SCH (10:14)
[2022-02-12] MEDS: Aspirin 81 mg Enteric Coated Tablet PO SCH (10:14)
[2022-02-12] MEDS: Valproic Acid 250 MG CAP PO SCH (10:14)
[2022-02-12] MEDS: Senokot S 8.6-50 MG TAB PO SCH (10:14)
[2022-02-12] MEDS: Acetaminophen 325 MG TAB PO PRN (15:00)
[2022-02-12 17:19] VITALS: BP 169/77; TEMP 97.8
== END 2022-02-12 18:43 | DRG 270 ==
LOC: ERS 05:30 → 2NO 08:23 → OBSVTOIN 02-11 13:09
PROVIDERS: ADMIT Hospitalist; ATTEND Hospitalist
PROC: 02BN3ZX Excision of Pericardium, Percutaneous Approach, Diagnostic (ICD-10-PCS; principal; 2022-02-09)
PROC: 0W9D30Z Drainage of Pericardial Cavity with Drainage Device, Percutaneous Approach (ICD-10-PCS; 2022-02-09)
DX: I30.9 Acute pericarditis, unspecified (principal); I50.33 Acute on chronic diastolic (congestive) heart failure; I13.0 Hypertensive heart and chronic kidney disease with heart failure and stage 1 through stage 4 chronic kidney disease, or unspecified chronic kidney disease; N17.9 Acute kidney failure, unspecified; I48.21 Permanent atrial fibrillation; E87.1 Hypo-osmolality and hyponatremia; I24.8 Other forms of acute ischemic heart disease; I31.4 Cardiac tamponade; Z20.822 Contact with and (suspected) exposure to COVID-19; E78.5 Hyperlipidemia, unspecified; E03.9 Hypothyroidism, unspecified; F41.9 Anxiety disorder, unspecified; N18.30 Chronic kidney disease, stage 3 unspecified; D63.1 Anemia in chronic kidney disease; Z88.1 Allergy status to other antibiotic agents; Z88.2 Allergy status to sulfonamides; Z88.8 Allergy status to other drugs, medicaments and biological substances; Z79.899 Other long term (current) drug therapy; Z79.82 Long term (current) use of aspirin; Z90.710 Acquired absence of both cervix and uterus; Z98.49 Cataract extraction status, unspecified eye; Z90.49 Acquired absence of other specified parts of digestive tract; Z90.89 Acquired absence of other organs; Z87.891 Personal history of nicotine dependence; Z82.49 Family history of ischemic heart disease and other diseases of the circulatory system
CPT/HCPCS: 36415; 71045; 80048; 80053; 81001; 82140; 82553; 83880; 85025; 85610; 85730; 87070; 87077; 87186; 87205; 88305; 93005; 93306; 94760; 96372; 96374; G0378; J0171; J0690; J1650; J1940; J2370; J2405; J3490; S0020; U0003; U0005

== ENCOUNTER 2022-03-01 12:27 | Inpatient (IN) | payer MEDICARE, BC, MEDICAID ==
[2022-03-01 13:30] LABS: #Basophils 0.1 thou/uL (0.0-0.2); #Lymphocytes 0.6 thou/uL (1.20-3.40); #Monocytes 0.6 thou/uL (0.11-0.59); #Neutrophils 2.9 thou/uL (1.40-6.50); %Basophils 1.3 % (0.0-1.0); %Eosinophils 0.4 % (0.0-10.0); %Lymphocytes 13.5 % (21.0-51.0); %Monocytes 14.8 % (0.0-10.0); Hemoglobin 9.6 g/dL (12.0-16.0); Mean Corpuscular HGB CONC 33.3 g/dL (32.0-36.0); Mean Corpuscular Volume 96.1 fL (78.0-98.0); Mean Platelet Volume 7.5 fL (7.4-10.4); Platelet Count 281 thou/uL (130-400); RBC Distribution Width 15.2 % (11.5-14.5); White Blood Cell (WBC) Count 4.1 thou/uL (4.8-10.8)
[2022-03-01 13:39] LABS: Bilirubin Negative (Negative); Blood, Urine 2+ (Negative); Clarity Turbid (Clear); Glucose, Urine (Dipstick) Normal (Negative); Ketone, Urine Trace mg/dL (Negative); Leukocyte 500 Leu/uL (Negative); Nitrite 2+ (Negative); Protein, Urine (Dipstick) 300 mg/dL (Neg-Trace); RBC/HPF 0-3 HPF (0-3); Specific Gravity, Urine 1.019 (1.002-1.036); Squamous Epithelial 0-3 HPF (0-3); Urobilinogen Normal mg/dL (Less than 2)
[2022-03-01 13:47] LABS: Bacteria/HPF 3+ HPF (None Seen); Yeast-Budding None Seen HPF (None Seen)
[2022-03-01 13:52] LABS: ALT (SGPT) 30 U/L (8-55); AST (SGOT) 50 U/L (5-34); Albumin 3.7 g/dL (3.4-4.8); Alkaline Phosphatase 73 U/L (40-110); Anion Gap 17 mmol/L (10-20); BUN (Urea Nitrogen) 41 mg/dL (9.8-20.1); Bilirubin, Total 0.8 mg/dL (0.2-1.2); Calc. Creatinine Clearance 0 mL/min (70-130); Calcium 9.5 mg/dL (7.8-10.44); Carbon Dioxide 27 mmol/L (23-31); Chloride 95 mmol/L (98-107); Globulin 2.3 g/dL (2.4-3.5); Glucose 100 mg/dL (83-110); Lipase 8 U/L (8-78); Potassium 4.8 mmol/L (3.5-5.1); Sodium 134 mmol/L (136-145)
[2022-03-01 14:14] LABS: CKMB 3.3 ng/mL (0-6.6)
[2022-03-01] MEDS ORDERED: Vancomycin 1 GM/200 ML BAG ONE (15:15)
[2022-03-01] MEDS ORDERED: Cefepime 2 GM VIAL ONE (15:15)
[2022-03-01 17:55] LABS: Troponin I 0.055 ng/mL (< 0.028)
[2022-03-01 18:16] VITALS: BMI 27.9
[2022-03-01] MEDS ORDERED: Acetaminophen 325 MG TAB PO PRN (18:31)
[2022-03-01] MEDS ORDERED: Vancomycin 1 GM in Premix Bag 1 BAG IVPB SCH (18:31)
[2022-03-01] MEDS ORDERED: Cefepime 2 GM in Sodium Chloride 0.9% 100 ML IVPB SCH (21:00)
[2022-03-01 21:11] LABS: Troponin I 0.051 ng/mL (< 0.028)
[2022-03-01] MEDS: Sodium Chloride 0.9% 1,000 ML IV SCH (21:56)
[2022-03-01] MEDS: HYDROcodone/Acetaminophen 5/325 mg Tablet PO PRN (22:49)
[2022-03-01] MEDS ORDERED: Metoprolol Tartrate 100 MG TAB PO SCH (23:45)
[2022-03-01 23:46] LABS: SARS-CoV-2 NAA Rapid Test Not Detected (NotDetected)
[2022-03-02 05:09] LABS: Anion Gap 16 mmol/L (10-20); BUN (Urea Nitrogen) 36 mg/dL (9.8-20.1); Calc. Creatinine Clearance 28 mL/min (70-130); Calcium 9.2 mg/dL (7.8-10.44); Carbon Dioxide 23 mmol/L (23-31); Chloride 99 mmol/L (98-107); Glucose 102 mg/dL (83-110); Potassium 4.3 mmol/L (3.5-5.1); Sodium 134 mmol/L (136-145)
[2022-03-02 05:22] LABS: Band 10 % (5-11); Eosinophils 1 % (0-10); Hemoglobin 8.9 g/dL (12.0-16.0); Lymphocytes 16 % (21-51); MDiff Complete? YES; Mean Corpuscular HGB CONC 33.3 g/dL (32.0-36.0); Mean Corpuscular Hemoglobin 32.1 pg (27.0-31.0); Mean Corpuscular Volume 96.4 fL (78.0-98.0); Mean Platelet Volume 7.3 fL (7.4-10.4); Monocytes 9 % (0-10); Neutrophil 63 % (42-75); Platelet Count 250 thou/uL (130-400); RBC Distribution Width 15.3 % (11.5-14.5); Red Blood Cell (RBC) Count 2.78 mill/uL (4.20-5.40); White Blood Cell (WBC) Count 4.1 thou/uL (4.8-10.8)
[2022-03-02] MEDS ORDERED: Vancomycin 1 GM in Sodium Chloride 0.9% 250 ML 250 ML IVPB SCH (09:30)
[2022-03-02] MEDS ORDERED: Calcium Carbonate 500 MG ChewTAB PO PRN (09:38)
[2022-03-02] MEDS ORDERED: cloNIDine 0.1 MG TAB PO PRN (09:43)
[2022-03-02] MEDS: Metoprolol Tartrate 100 MG TAB PO SCH ×2 (10:23→16:42)
[2022-03-02] MEDS: busPIRone HCl 10 MG TAB PO SCH ×3 (10:23→20:43)
[2022-03-02] MEDS: Valproic Acid 250 MG CAP PO SCH ×2 (10:23→20:43)
[2022-03-02] MEDS: Saccharomyces boulardii 250 MG CAP PO SCH (10:23)
[2022-03-02] MEDS: HYDROcodone/Acetaminophen 5/325 mg Tablet PO PRN ×2 (10:24→16:42)
[2022-03-02] MEDS: Cefepime 1 GM in Sodium Chloride 0.9% 100 ML IVPB SCH (13:33)
[2022-03-02 16:29] LABS: Vancomycin, Random 4.4 ug/mL (See Comment)
[2022-03-02] MEDS: Sodium Chloride 0.9% 1,000 ML IV SCH (16:43)
[2022-03-02] MEDS ORDERED: Vancomycin 1.5 GRAM/300 ML BAG 1.5 GM in Premix Bag 1 BAG IVPB SCH (17:00)
[2022-03-02] MEDS: Doxepin HCl 25 MG CAP PO SCH (20:42)
[2022-03-02] MEDS: Mirtazapine 30 MG TAB PO SCH (20:43)
[2022-03-02] MEDS: Colchicine 0.6 MG TAB PO SCH (20:43)
[2022-03-03] MEDS: Levothyroxine Sodium 50 MCG TAB PO SCH (07:39)
[2022-03-03] MEDS: HYDROcodone/Acetaminophen 5/325 mg Tablet PO PRN ×3 (07:39→18:47)
[2022-03-03 09:19] LABS: Anion Gap 14 mmol/L (10-20); BUN (Urea Nitrogen) 34 mg/dL (9.8-20.1); Calc. Creatinine Clearance 31 mL/min (70-130); Calcium 8.9 mg/dL (7.8-10.44); Carbon Dioxide 24 mmol/L (23-31); Chloride 100 mmol/L (98-107); Glucose 111 mg/dL (83-110); Potassium 4.2 mmol/L (3.5-5.1); Sodium 134 mmol/L (136-145)
[2022-03-03 09:47] LABS: Band 20 % (5-11); Lymphocytes 20 % (21-51); MDiff Complete? YES; Mean Corpuscular HGB CONC 33.2 g/dL (32.0-36.0); Mean Corpuscular Hemoglobin 32.4 pg (27.0-31.0); Mean Corpuscular Volume 97.5 fL (78.0-98.0); Mean Platelet Volume 7.5 fL (7.4-10.4); Metamyelocyte 1 % (0-0); Monocytes 13 % (0-10); Myelocyte 2 % (0-0); Neutrophil 42 % (42-75); Platelet Count 219 thou/uL (130-400); Platelet Morphology Comment Appears Adequate; Polychromasia SLIGHT = 2-3 cells (100X) (0-2/hpf); RBC Distribution Width 15.7 % (11.5-14.5); Reactive Lymphocytes 2 % (0-10); Red Blood Cell (RBC) Count 2.77 mill/uL (4.20-5.40); White Blood Cell (WBC) Count 3.5 thou/uL (4.8-10.8)
[2022-03-03] MEDS: Valproic Acid 250 MG CAP PO SCH ×2 (10:39→21:33)
[2022-03-03] MEDS: Valsartan 80 MG TAB PO SCH (10:39)
[2022-03-03] MEDS: Aripiprazole 15 MG TAB PO SCH (10:39)
[2022-03-03] MEDS: Saccharomyces boulardii 250 MG CAP PO SCH (10:40)
[2022-03-03] MEDS: Amlodipine 10 MG TAB PO SCH (10:40)
[2022-03-03] MEDS: busPIRone HCl 10 MG TAB PO SCH ×3 (10:40→21:43)
[2022-03-03] MEDS: Colchicine 0.6 MG TAB PO SCH ×2 (10:40→21:33)
[2022-03-03] MEDS: Metoprolol Tartrate 100 MG TAB PO SCH ×2 (10:40→17:03)
[2022-03-03] MEDS: Sodium Chloride 0.9% 1,000 ML IV SCH (12:44)
[2022-03-03] MEDS: Cefepime 1 GM in Sodium Chloride 0.9% 100 ML IVPB SCH (12:57)
[2022-03-03 15:00] LABS: Complement-C4 20.9 mg/dL (15-57)
[2022-03-03 17:24] LABS: Vancomycin, Random 17.7 ug/mL (See Comment)
[2022-03-03] MEDS: Artificial Tear Sol 15 ML BOT EA EYE PRN (17:49)
[2022-03-03] MEDS ORDERED: Vancomycin HCl 500 MG in Sodium Chloride 0.9% 100 ML IVPB SCH (18:00)
[2022-03-03] MEDS: Mirtazapine 30 MG TAB PO SCH (21:33)
[2022-03-03] MEDS: Doxepin HCl 25 MG CAP PO SCH (21:41)
[2022-03-04 04:50] LABS: Band 7 % (5-11); Hemoglobin 9.3 g/dL (12.0-16.0); Lymphocytes 21 % (21-51); MDiff Complete? YES; Mean Corpuscular HGB CONC 32.7 g/dL (32.0-36.0); Mean Corpuscular Volume 97.7 fL (78.0-98.0); Mean Platelet Volume 7.4 fL (7.4-10.4); Monocytes 11 % (0-10); Neutrophil 60 % (42-75); Nucleated RBC 2 % (0); Platelet Count 250 thou/uL (130-400); RBC Distribution Width 15.9 % (11.5-14.5); White Blood Cell (WBC) Count 3.9 thou/uL (4.8-10.8)
[2022-03-04 04:52] LABS: Anion Gap 13 mmol/L (10-20); BUN (Urea Nitrogen) 33 mg/dL (9.8-20.1); Calc. Creatinine Clearance 31 mL/min (70-130); Calcium 9.2 mg/dL (7.8-10.44); Carbon Dioxide 23 mmol/L (23-31); Chloride 102 mmol/L (98-107); Glucose 118 mg/dL (83-110); Potassium 4.2 mmol/L (3.5-5.1); Sodium 134 mmol/L (136-145)
[2022-03-04] MEDS: Levothyroxine Sodium 50 MCG TAB PO SCH (06:38)
[2022-03-04] MEDS ORDERED: Furosemide 40 MG/4 ML VIAL SLOW IVP SCH (08:00)
[2022-03-04] MEDS: Valproic Acid 250 MG CAP PO SCH ×2 (08:28→20:03)
[2022-03-04] MEDS: Valsartan 80 MG TAB PO SCH (08:28)
[2022-03-04] MEDS: Saccharomyces boulardii 250 MG CAP PO SCH (08:29)
[2022-03-04] MEDS: Metoprolol Tartrate 100 MG TAB PO SCH ×2 (08:29→18:23)
[2022-03-04] MEDS: Amlodipine 10 MG TAB PO SCH (08:29)
[2022-03-04] MEDS: Aripiprazole 15 MG TAB PO SCH (08:29)
[2022-03-04] MEDS: busPIRone HCl 10 MG TAB PO SCH ×3 (08:29→20:03)
[2022-03-04] MEDS: Colchicine 0.6 MG TAB PO SCH ×2 (08:29→20:03)
[2022-03-04 08:46] LABS: Anion Gap 14 mmol/L (10-20); BUN (Urea Nitrogen) 33 mg/dL (9.8-20.1); Calc. Creatinine Clearance 30 mL/min (70-130); Calcium 9.4 mg/dL (7.8-10.44); Carbon Dioxide 23 mmol/L (23-31); Chloride 102 mmol/L (98-107); Glucose 107 mg/dL (83-110); Potassium 4.4 mmol/L (3.5-5.1); Sodium 135 mmol/L (136-145)
[2022-03-04] MEDS ORDERED: Lidocaine 1% (PF) 30 ML VIAL FS SCH (11:30)
[2022-03-04] MEDS: Cefepime 1 GM in Sodium Chloride 0.9% 100 ML IVPB SCH (12:19)
[2022-03-04] MEDS: HYDROcodone/Acetaminophen 5/325 mg Tablet PO PRN ×2 (12:19→23:40)
[2022-03-04 13:44] LABS: RBC Count-Automated (BF) 976 /cu.mm; WBC/Nucleated-Auto (BF) 130 /cu.mm
[2022-03-04 14:02] LABS: Body Fluid Source Pleural Fluid; Clarity Clear (Clear); Tube # EDTA
[2022-03-04 14:03] LABS: BF Color Yellow
[2022-03-04 14:07] LABS: BF Segmented Neutrophils 8 %; Cell Count Non Hematic 41 %; Lymphocytes 51 %
[2022-03-04] MEDS: Furosemide 40 MG/4 ML VIAL SLOW IVP SCH (14:47)
[2022-03-04 17:52] LABS: Vancomycin, Random 17.3 ug/mL (See Comment)
[2022-03-04] MEDS ORDERED: Vancomycin HCl 500 MG in Sodium Chloride 0.9% 100 ML IVPB SCH (19:15)
[2022-03-04] MEDS: Mirtazapine 30 MG TAB PO SCH (20:03)
[2022-03-04] MEDS: Doxepin HCl 25 MG CAP PO SCH (20:03)
[2022-03-05] MEDS: Levothyroxine Sodium 50 MCG TAB PO SCH (05:36)
[2022-03-05] MEDS: Furosemide 40 MG/4 ML VIAL SLOW IVP SCH ×2 (05:36→13:11)
[2022-03-05 05:45] LABS: Anion Gap 11 mmol/L (10-20); Calc. Creatinine Clearance 28 mL/min (70-130); Carbon Dioxide 27 mmol/L (23-31); Chloride 97 mmol/L (98-107); Glucose 105 mg/dL (83-110); Potassium 3.7 mmol/L (3.5-5.1); Sodium 131 mmol/L (136-145)
[2022-03-05 05:46] LABS: BUN (Urea Nitrogen) 32 mg/dL (9.8-20.1)
[2022-03-05] MEDS: Metoprolol Tartrate 100 MG TAB PO SCH ×2 (07:42→16:01)
[2022-03-05] MEDS: HYDROcodone/Acetaminophen 5/325 mg Tablet PO PRN ×3 (07:46→20:26)
[2022-03-05] MEDS: Amlodipine 10 MG TAB PO SCH (09:16)
[2022-03-05] MEDS: Colchicine 0.6 MG TAB PO SCH ×2 (09:17→20:25)
[2022-03-05] MEDS: Aripiprazole 15 MG TAB PO SCH (09:17)
[2022-03-05] MEDS: Valsartan 80 MG TAB PO SCH (09:17)
[2022-03-05] MEDS: Saccharomyces boulardii 250 MG CAP PO SCH (09:17)
[2022-03-05] MEDS: busPIRone HCl 10 MG TAB PO SCH ×3 (09:17→20:25)
[2022-03-05] MEDS: Artificial Tear Sol 15 ML BOT EA EYE PRN ×2 (09:18→21:23)
[2022-03-05] MEDS: Valproic Acid 250 MG CAP PO SCH ×2 (09:18→20:26)
[2022-03-05] MEDS: Cefepime 1 GM in Sodium Chloride 0.9% 100 ML IVPB SCH (11:33)
[2022-03-05] MEDS ORDERED: Bisacodyl 10 MG SUPP PR SCH (14:30)
[2022-03-05] MEDS: Doxepin HCl 25 MG CAP PO SCH (20:25)
[2022-03-05] MEDS: Mirtazapine 30 MG TAB PO SCH (20:26)
[2022-03-06 04:22] LABS: Anion Gap 17 mmol/L (10-20); BUN (Urea Nitrogen) 33 mg/dL (9.8-20.1); Calc. Creatinine Clearance 28 mL/min (70-130); Calcium 9.1 mg/dL (7.8-10.44); Carbon Dioxide 24 mmol/L (23-31); Chloride 98 mmol/L (98-107); Glucose 102 mg/dL (83-110); Sodium 135 mmol/L (136-145)
[2022-03-06] MEDS: Levothyroxine Sodium 50 MCG TAB PO SCH (05:38)
[2022-03-06] MEDS: Furosemide 40 MG/4 ML VIAL SLOW IVP SCH (05:38)
[2022-03-06] MEDS: Valsartan 80 MG TAB PO SCH (08:47)
[2022-03-06] MEDS: Metoprolol Tartrate 100 MG TAB PO SCH ×2 (08:48→17:22)
[2022-03-06] MEDS: Colchicine 0.6 MG TAB PO SCH ×2 (08:48→20:29)
[2022-03-06] MEDS: Aripiprazole 15 MG TAB PO SCH (08:48)
[2022-03-06] MEDS: Valproic Acid 250 MG CAP PO SCH ×2 (08:48→20:30)
[2022-03-06] MEDS: busPIRone HCl 10 MG TAB PO SCH ×3 (08:49→20:29)
[2022-03-06] MEDS: Saccharomyces boulardii 250 MG CAP PO SCH (08:49)
[2022-03-06] MEDS: Artificial Tear Sol 15 ML BOT EA EYE PRN ×3 (08:49→20:29)
[2022-03-06] MEDS: Amlodipine 10 MG TAB PO SCH (08:49)
[2022-03-06] MEDS: HYDROcodone/Acetaminophen 5/325 mg Tablet PO PRN ×2 (08:49→17:27)
[2022-03-06] MEDS: Cefepime 1 GM in Sodium Chloride 0.9% 100 ML IVPB SCH (11:31)
[2022-03-06] MEDS ORDERED: Fleet Enema 133 ML BOT PR SCH (12:45)
[2022-03-06] MEDS: Doxepin HCl 25 MG CAP PO SCH (20:29)
[2022-03-06] MEDS: Mirtazapine 30 MG TAB PO SCH (20:29)
[2022-03-07 04:49] LABS: Anion Gap 14 mmol/L (10-20); BUN (Urea Nitrogen) 36 mg/dL (9.8-20.1); Calc. Creatinine Clearance 26 mL/min (70-130); Calcium 9.5 mg/dL (7.8-10.44); Carbon Dioxide 29 mmol/L (23-31); Chloride 97 mmol/L (98-107); Glucose 95 mg/dL (83-110); Potassium 3.2 mmol/L (3.5-5.1); Sodium 137 mmol/L (136-145)
[2022-03-07] MEDS: Levothyroxine Sodium 50 MCG TAB PO SCH (05:27)
[2022-03-07] MEDS ORDERED: Sodium Chloride 0.9% 500 ML IV SCH (07:45)
[2022-03-07] MEDS ORDERED: Potassium Chloride 20 MEQ TAB PO SCH (08:00)
[2022-03-07] MEDS: Amlodipine 10 MG TAB PO SCH (08:41)
[2022-03-07] MEDS: Valproic Acid 250 MG CAP PO SCH ×2 (08:41→21:03)
[2022-03-07] MEDS: Colchicine 0.6 MG TAB PO SCH ×2 (08:41→21:04)
[2022-03-07] MEDS: Aripiprazole 15 MG TAB PO SCH (08:41)
[2022-03-07] MEDS: Metoprolol Tartrate 100 MG TAB PO SCH ×2 (08:41→16:50)
[2022-03-07] MEDS: Saccharomyces boulardii 250 MG CAP PO SCH (08:41)
[2022-03-07] MEDS: Valsartan 80 MG TAB PO SCH (08:41)
[2022-03-07] MEDS: Artificial Tear Sol 15 ML BOT EA EYE PRN ×2 (08:42→21:02)
[2022-03-07] MEDS: busPIRone HCl 10 MG TAB PO SCH ×3 (08:42→21:03)
[2022-03-07] MEDS: HYDROcodone/Acetaminophen 5/325 mg Tablet PO PRN ×2 (11:56→21:02)
[2022-03-07] MEDS: Mirtazapine 30 MG TAB PO SCH (21:04)
[2022-03-07] MEDS: Doxepin HCl 25 MG CAP PO SCH (21:04)
[2022-03-08 04:23] LABS: #Basophils 0.1 thou/uL (0.0-0.2); #Eosinphils 0.1 thou/uL (0.0-0.7); #Lymphocytes 0.6 thou/uL (1.20-3.40); #Monocytes 0.6 thou/uL (0.11-0.59); #Neutrophils 4.7 thou/uL (1.40-6.50); %Basophils 1.2 % (0.0-1.0); %Eosinophils 1.1 % (0.0-10.0); %Lymphocytes 9.7 % (21.0-51.0); %Monocytes 9.7 % (0.0-10.0); %Neutrophils 78.3 % (42.0-75.0); Hemoglobin 9.4 g/dL (12.0-16.0); Mean Corpuscular HGB CONC 33.9 g/dL (32.0-36.0); Mean Corpuscular Volume 97.4 fL (78.0-98.0); Platelet Count 196 thou/uL (130-400); RBC Distribution Width 16.1 % (11.5-14.5); Red Blood Cell (RBC) Count 2.85 mill/uL (4.20-5.40)
[2022-03-08 04:53] LABS: Anion Gap 15 mmol/L (10-20); BUN (Urea Nitrogen) 35 mg/dL (9.8-20.1); Calc. Creatinine Clearance 29 mL/min (70-130); Calcium 9.4 mg/dL (7.8-10.44); Carbon Dioxide 26 mmol/L (23-31); Chloride 97 mmol/L (98-107); Glucose 99 mg/dL (83-110); Potassium 3.8 mmol/L (3.5-5.1); Sodium 134 mmol/L (136-145)
[2022-03-08] MEDS: Levothyroxine Sodium 50 MCG TAB PO SCH (05:23)
[2022-03-08] MEDS: Metoprolol Tartrate 100 MG TAB PO SCH ×2 (09:38→17:40)
[2022-03-08] MEDS: Aripiprazole 15 MG TAB PO SCH (09:39)
[2022-03-08] MEDS: Amlodipine 10 MG TAB PO SCH (09:39)
[2022-03-08] MEDS: busPIRone HCl 10 MG TAB PO SCH ×3 (09:40→20:41)
[2022-03-08] MEDS: Saccharomyces boulardii 250 MG CAP PO SCH (09:40)
[2022-03-08] MEDS: Colchicine 0.6 MG TAB PO SCH ×2 (09:40→20:42)
[2022-03-08] MEDS: Valproic Acid 250 MG CAP PO SCH ×2 (09:40→20:42)
[2022-03-08] MEDS: Valsartan 80 MG TAB PO SCH (09:41)
[2022-03-08] MEDS: Doxepin HCl 25 MG CAP PO SCH (20:41)
[2022-03-08] MEDS: HYDROcodone/Acetaminophen 5/325 mg Tablet PO PRN (20:41)
[2022-03-08] MEDS: Mirtazapine 30 MG TAB PO SCH (20:42)
[2022-03-08] MEDS: Artificial Tear Sol 15 ML BOT EA EYE PRN (20:47)
[2022-03-09] MEDS: HYDROcodone/Acetaminophen 5/325 mg Tablet PO PRN ×3 (00:04→21:12)
[2022-03-09] MEDS: Levothyroxine Sodium 50 MCG TAB PO SCH (05:28)
[2022-03-09] MEDS: busPIRone HCl 10 MG TAB PO SCH ×3 (08:53→21:12)
[2022-03-09] MEDS: Colchicine 0.6 MG TAB PO SCH ×2 (08:53→21:12)
[2022-03-09] MEDS: Valsartan 80 MG TAB PO SCH (08:53)
[2022-03-09] MEDS: Aripiprazole 15 MG TAB PO SCH (08:53)
[2022-03-09] MEDS: Metoprolol Tartrate 100 MG TAB PO SCH ×2 (08:53→16:22)
[2022-03-09] MEDS: Saccharomyces boulardii 250 MG CAP PO SCH (08:53)
[2022-03-09] MEDS: Valproic Acid 250 MG CAP PO SCH ×2 (08:53→21:11)
[2022-03-09] MEDS: Amlodipine 10 MG TAB PO SCH (08:53)
[2022-03-09] MEDS: Mirtazapine 30 MG TAB PO SCH (21:12)
[2022-03-09] MEDS: Doxepin HCl 25 MG CAP PO SCH (21:12)
[2022-03-09] MEDS: Artificial Tear Sol 15 ML BOT EA EYE PRN (21:18)
[2022-03-10] MEDS: HYDROcodone/Acetaminophen 5/325 mg Tablet PO PRN ×2 (04:01→20:04)
[2022-03-10] MEDS: Artificial Tear Sol 15 ML BOT EA EYE PRN (04:04)
[2022-03-10] MEDS: Levothyroxine Sodium 50 MCG TAB PO SCH (05:54)
[2022-03-10] MEDS: Amlodipine 10 MG TAB PO SCH (09:29)
[2022-03-10] MEDS: Metoprolol Tartrate 100 MG TAB PO SCH ×2 (09:29→16:56)
[2022-03-10] MEDS: Aripiprazole 15 MG TAB PO SCH (09:30)
[2022-03-10] MEDS: Valproic Acid 250 MG CAP PO SCH ×2 (09:30→20:03)
[2022-03-10] MEDS: Colchicine 0.6 MG TAB PO SCH ×2 (09:30→20:06)
[2022-03-10] MEDS: Saccharomyces boulardii 250 MG CAP PO SCH (09:30)
[2022-03-10] MEDS: busPIRone HCl 10 MG TAB PO SCH ×3 (09:30→20:06)
[2022-03-10] MEDS: Valsartan 80 MG TAB PO SCH (09:30)
[2022-03-10] MEDS: Mirtazapine 30 MG TAB PO SCH (20:03)
[2022-03-10] MEDS: Doxepin HCl 25 MG CAP PO SCH (20:04)
[2022-03-11 04:46] LABS: #Eosinphils 0.1 thou/uL (0.0-0.7); #Lymphocytes 0.5 thou/uL (1.20-3.40); #Monocytes 0.9 thou/uL (0.11-0.59); #Neutrophils 8.2 thou/uL (1.40-6.50); %Basophils 0.1 % (0.0-1.0); %Eosinophils 0.6 % (0.0-10.0); %Lymphocytes 5.2 % (21.0-51.0); %Monocytes 9.4 % (0.0-10.0); %Neutrophils 84.7 % (42.0-75.0); Hemoglobin 10.4 g/dL (12.0-16.0); Mean Corpuscular HGB CONC 32.1 g/dL (32.0-36.0); Mean Corpuscular Hemoglobin 31.4 pg (27.0-31.0); Mean Corpuscular Volume 97.6 fL (78.0-98.0); Mean Platelet Volume 8.9 fL (7.4-10.4); Platelet Count 174 thou/uL (130-400); RBC Distribution Width 16.4 % (11.5-14.5); White Blood Cell (WBC) Count 9.7 thou/uL (4.8-10.8)
[2022-03-11 05:17] LABS: ALT (SGPT) 32 U/L (8-55); AST (SGOT) 43 U/L (5-34); Albumin 3.2 g/dL (3.4-4.8); Alkaline Phosphatase 82 U/L (40-110); BUN (Urea Nitrogen) 38 mg/dL (9.8-20.1); Bilirubin, Total 0.8 mg/dL (0.2-1.2); Calc. Creatinine Clearance 32 mL/min (70-130); Calcium 9.1 mg/dL (7.8-10.44); Carbon Dioxide 25 mmol/L (23-31); Chloride 94 mmol/L (98-107); Globulin 2.3 g/dL (2.4-3.5); Glucose 103 mg/dL (83-110); Magnesium 1.8 mg/dL (1.6-2.6); Protein, Total 5.5 g/dL (5.8-8.1); Sodium 130 mmol/L (136-145)
[2022-03-11] MEDS: Levothyroxine Sodium 50 MCG TAB PO SCH (05:18)
[2022-03-11 08:04] LABS: Anion Gap 15 mmol/L (10-20)
[2022-03-11] MEDS: Metoprolol Tartrate 100 MG TAB PO SCH (08:56)
[2022-03-11] MEDS: Amlodipine 10 MG TAB PO SCH (08:56)
[2022-03-11] MEDS: Valsartan 80 MG TAB PO SCH (08:57)
[2022-03-11] MEDS: Valproic Acid 250 MG CAP PO SCH (08:57)
[2022-03-11] MEDS: Saccharomyces boulardii 250 MG CAP PO SCH (08:57)
[2022-03-11] MEDS: Aripiprazole 15 MG TAB PO SCH (08:57)
[2022-03-11] MEDS: busPIRone HCl 10 MG TAB PO SCH ×2 (08:57→14:23)
[2022-03-11] MEDS: Colchicine 0.6 MG TAB PO SCH (08:57)
[2022-03-11] MEDS ORDERED: Polyethylene Glycol 3350 17 GM Packet PO SCH (10:00)
[2022-03-11 13:58] LABS: Bilirubin, Direct 0.4 mg/dL (0.1-0.3)
[2022-03-11] MEDS: HYDROcodone/Acetaminophen 5/325 mg Tablet PO PRN (14:26)
[2022-03-11 16:01] VITALS: BP 119/67; TEMP 97.4
[2022-03-12] MEDS ORDERED: Polyethylene Glycol 3350 17 GM Packet PO SCH (09:00)
== END 2022-03-11 15:45 | DRG 682 ==
LOC: ERS 12:27 → 2NO 15:33
PROVIDERS: ADMIT Internal Medicine; ATTEND Internal Medicine
PROC: 0W9B3ZZ Drainage of Left Pleural Cavity, Percutaneous Approach (ICD-10-PCS; principal; 2022-03-04)
DX: N17.9 Acute kidney failure, unspecified (principal); J96.01 Acute respiratory failure with hypoxia; I48.21 Permanent atrial fibrillation; I13.0 Hypertensive heart and chronic kidney disease with heart failure and stage 1 through stage 4 chronic kidney disease, or unspecified chronic kidney disease; E87.1 Hypo-osmolality and hyponatremia; I50.32 Chronic diastolic (congestive) heart failure; J90 Pleural effusion, not elsewhere classified; I31.3 Pericardial effusion (noninflammatory); N39.0 Urinary tract infection, site not specified; Z20.822 Contact with and (suspected) exposure to COVID-19; M32.9 Systemic lupus erythematosus, unspecified; F03.90 Unspecified dementia, unspecified severity, without behavioral disturbance, psychotic disturbance, mood disturbance, and anxiety; R10.9 Unspecified abdominal pain; D64.9 Anemia, unspecified; F41.9 Anxiety disorder, unspecified; R53.81 Other malaise; R79.89 Other specified abnormal findings of blood chemistry; F31.9 Bipolar disorder, unspecified; E78.5 Hyperlipidemia, unspecified; K59.00 Constipation, unspecified; R62.7 Adult failure to thrive; E78.00 Pure hypercholesterolemia, unspecified; E03.9 Hypothyroidism, unspecified; N18.30 Chronic kidney disease, stage 3 unspecified; Z79.890 Hormone replacement therapy; Z79.899 Other long term (current) drug therapy; Z88.6 Allergy status to analgesic agent; Z88.2 Allergy status to sulfonamides; Z88.8 Allergy status to other drugs, medicaments and biological substances; Z88.1 Allergy status to other antibiotic agents; Z90.710 Acquired absence of both cervix and uterus; Z98.49 Cataract extraction status, unspecified eye; Z90.49 Acquired absence of other specified parts of digestive tract; Z90.89 Acquired absence of other organs; Z87.891 Personal history of nicotine dependence; Z82.49 Family history of ischemic heart disease and other diseases of the circulatory system; Z86.73 Personal history of transient ischemic attack (TIA), and cerebral infarction without residual deficits; Z68.28 Body mass index [BMI] 28.0-28.9, adult
CPT/HCPCS: 36415; 71045; 71250; 74176; 74177; 76700; 80048; 80053; 80202; 81003; 81015; 82042; 82248; 82533; 82553; 83605; 83615; 83690; 83735; 83880; 84145; 84157; 84439; 84443; 84484; 85025; 85060; 86160; 86225; 87040; 87070; 87086; 87205; 87324; 87449; 88112; 88305; 89051; 93005; 96361; 96365; 96367; J0692; J1940; J2001; J3370; J3490; J7030; J7050; U0002; U0003; U0005

== ENCOUNTER 2022-03-12 19:57 | Inpatient (IN) | payer MEDICARE, BC, MEDICAID ==
[2022-03-12 23:11] VITALS: BMI 27.2
[2022-03-12] MEDS ORDERED: Senokot S 8.6-50 MG TAB PO PRN (23:18)
[2022-03-12] MEDS ORDERED: Ondansetron PF 4 MG/2 ML Vial IVP PRN (23:18)
[2022-03-12] MEDS ORDERED: Calcium Carbonate 500 MG ChewTAB PO PRN (23:18)
[2022-03-12] MEDS ORDERED: Loperamide HCl 2 MG CAP PO PRN (23:18)
[2022-03-12] MEDS ORDERED: Acetaminophen 325 MG TAB PO PRN (23:18)
[2022-03-13 04:05] LABS: #Lymphocytes 0.4 thou/uL (1.20-3.40); #Neutrophils 7.1 thou/uL (1.40-6.50); %Basophils 0.2 % (0.0-1.0); %Eosinophils 0.5 % (0.0-10.0); %Lymphocytes 4.5 % (21.0-51.0); %Monocytes 11.3 % (0.0-10.0); %Neutrophils 83.5 % (42.0-75.0); Hemoglobin 10.5 g/dL (12.0-16.0); Mean Corpuscular HGB CONC 32.1 g/dL (32.0-36.0); Mean Corpuscular Hemoglobin 32.2 pg (27.0-31.0); Platelet Count 207 thou/uL (130-400); Red Blood Cell (RBC) Count 3.25 mill/uL (4.20-5.40); White Blood Cell (WBC) Count 8.5 thou/uL (4.8-10.8)
[2022-03-13 04:20] LABS: Anion Gap 19 mmol/L (10-20); BUN (Urea Nitrogen) 59 mg/dL (9.8-20.1); Calc. Creatinine Clearance 24 mL/min (70-130); Calcium 9.5 mg/dL (7.8-10.44); Carbon Dioxide 23 mmol/L (23-31); Chloride 94 mmol/L (98-107); Estimated GFR 23; Glucose 95 mg/dL (83-110); Potassium 4.4 mmol/L (3.5-5.1); Sodium 132 mmol/L (136-145)
[2022-03-13] MEDS: Cefepime 1 GM in Sodium Chloride 0.9% 100 ML IVPB SCH ×2 (09:48→20:37)
[2022-03-13] MEDS: Famotidine/PF 20 mg/2ml Vial SLOW IVP SCH (09:49)
[2022-03-13] MEDS: Heparin 5,000 UNITS/ML VIAL SC SCH ×3 (09:51→20:36)
[2022-03-13] MEDS ORDERED: VANCOMYCIN 1.25 GM/250 ML BAG 1.25 GM in Premix Bag 1 BAG IVPB SCH (14:30)
[2022-03-13] MEDS ORDERED: Vancomycin 1.5 GRAM/300 ML BAG 1.5 GM in Premix Bag 1 BAG IVPB SCH (14:30)
[2022-03-13] MEDS ORDERED: Metoprolol Tartrate 5 MG/5 ML VIAL IVP SCH (15:00)
[2022-03-13] MEDS: HYDROcodone/Acetaminophen 5/325 mg Tablet PO PRN ×2 (15:02→20:41)
[2022-03-13] MEDS ORDERED: Bisacodyl 10 MG SUPP PR PRN (16:13)
[2022-03-13] MEDS: Metoprolol Tartrate 100 MG TAB PO SCH (20:35)
[2022-03-13] MEDS: busPIRone HCl 10 MG TAB PO SCH (20:35)
[2022-03-13] MEDS: Doxepin HCl 25 MG CAP PO SCH (20:35)
[2022-03-13] MEDS: Colchicine 0.6 MG TAB PO SCH (20:36)
[2022-03-13] MEDS: Mirtazapine 30 MG TAB PO SCH (20:36)
[2022-03-13] MEDS: Valproic Acid 250 MG CAP PO SCH (20:37)
[2022-03-14] MEDS: Levothyroxine Sodium 25 MCG TAB PO SCH (05:38)
[2022-03-14 07:51] LABS: Hemoglobin 10.4 g/dL (12.0-16.0); Mean Corpuscular HGB CONC 31.3 g/dL (32.0-36.0); Mean Corpuscular Hemoglobin 31.6 pg (27.0-31.0); Mean Platelet Volume 9.3 fL (7.4-10.4); Platelet Count 222 thou/uL (130-400); RBC Distribution Width 16.7 % (11.5-14.5); Red Blood Cell (RBC) Count 3.27 mill/uL (4.20-5.40); White Blood Cell (WBC) Count 6.3 thou/uL (4.8-10.8)
[2022-03-14 08:02] LABS: Anion Gap 18 mmol/L (10-20); BUN (Urea Nitrogen) 64 mg/dL (9.8-20.1); Calc. Creatinine Clearance 24 mL/min (70-130); Calcium 9.3 mg/dL (7.8-10.44); Carbon Dioxide 21 mmol/L (23-31); Chloride 99 mmol/L (98-107); Estimated GFR 22; Glucose 102 mg/dL (83-110); Potassium 4.7 mmol/L (3.5-5.1); Sodium 133 mmol/L (136-145)
[2022-03-14] MEDS: Cefepime 1 GM in Sodium Chloride 0.9% 100 ML IVPB SCH ×2 (09:27→21:11)
[2022-03-14] MEDS: busPIRone HCl 10 MG TAB PO SCH ×3 (09:28→21:17)
[2022-03-14] MEDS: Heparin 5,000 UNITS/ML VIAL SC SCH ×3 (09:28→21:25)
[2022-03-14] MEDS: Aripiprazole 15 MG TAB PO SCH (09:28)
[2022-03-14] MEDS: Metoprolol Tartrate 100 MG TAB PO SCH ×2 (09:28→21:16)
[2022-03-14] MEDS: HYDROcodone/Acetaminophen 5/325 mg Tablet PO PRN ×2 (09:28→21:36)
[2022-03-14] MEDS: Colchicine 0.6 MG TAB PO SCH ×2 (09:29→21:16)
[2022-03-14] MEDS: Valproic Acid 250 MG CAP PO SCH ×2 (09:29→21:36)
[2022-03-14] MEDS: Famotidine/PF 20 mg/2ml Vial SLOW IVP SCH (09:31)
[2022-03-14] MEDS ORDERED: Famotidine 20 MG TAB PO SCH (09:45)
[2022-03-14 16:42] LABS: Vancomycin, Random 22.5 ug/mL (See Comment)
[2022-03-14] MEDS: Doxepin HCl 25 MG CAP PO SCH (21:16)
[2022-03-14] MEDS: Mirtazapine 30 MG TAB PO SCH (21:16)
[2022-03-15] MEDS: Levothyroxine Sodium 25 MCG TAB PO SCH (04:59)
[2022-03-15 05:23] LABS: Troponin I 0.057 ng/mL (< 0.028)
[2022-03-15] MEDS ORDERED: Famotidine 20 MG TAB PO SCH (09:00)
[2022-03-15] MEDS: Metoprolol Tartrate 100 MG TAB PO SCH ×2 (09:39→19:54)
[2022-03-15] MEDS: Colchicine 0.6 MG TAB PO SCH ×2 (09:39→19:54)
[2022-03-15] MEDS: Valproic Acid 250 MG CAP PO SCH ×2 (09:39→20:08)
[2022-03-15] MEDS: Cefepime 1 GM in Sodium Chloride 0.9% 100 ML IVPB SCH ×2 (09:39→19:55)
[2022-03-15] MEDS: Aripiprazole 15 MG TAB PO SCH (09:39)
[2022-03-15] MEDS: busPIRone HCl 10 MG TAB PO SCH ×3 (09:39→19:54)
[2022-03-15] MEDS: Heparin 5,000 UNITS/ML VIAL SC SCH ×3 (09:40→19:54)
[2022-03-15] MEDS ORDERED: Lidocaine 5% Patch TD SCH (14:00)
[2022-03-15 16:45] LABS: Vancomycin, Random 17.4 ug/mL (See Comment)
[2022-03-15] MEDS ORDERED: Vancomycin HCl 750 MG in Sodium Chloride 0.9% 250 ML 250 ML IVPB SCH ×2 (17:00→17:15)
[2022-03-15] MEDS: HYDROcodone/Acetaminophen 5/325 mg Tablet PO PRN (18:34)
[2022-03-15 19:43] VITALS: BP 126/66; TEMP 97.9
[2022-03-15] MEDS: Doxepin HCl 25 MG CAP PO SCH (19:53)
[2022-03-15] MEDS: Mirtazapine 30 MG TAB PO SCH (19:54)
[2022-03-16] MEDS ORDERED: Transdermal Patch Removal TOP SCH (02:00)
== END 2022-03-15 20:30 | disposition short-term general hospital (02) | DRG 545 ==
LOC: IMCU/EMU 19:57 → 2NO 03-14 20:15
PROVIDERS: ADMIT Internal Medicine; ATTEND Internal Medicine
DX: M32.13 Lung involvement in systemic lupus erythematosus (principal); J96.01 Acute respiratory failure with hypoxia; I31.1 Chronic constrictive pericarditis; I31.3 Pericardial effusion (noninflammatory); N17.9 Acute kidney failure, unspecified; I48.21 Permanent atrial fibrillation; I48.91 Unspecified atrial fibrillation; E03.9 Hypothyroidism, unspecified; I12.9 Hypertensive chronic kidney disease with stage 1 through stage 4 chronic kidney disease, or unspecified chronic kidney disease; N18.30 Chronic kidney disease, stage 3 unspecified; G40.909 Epilepsy, unspecified, not intractable, without status epilepticus; K25.9 Gastric ulcer, unspecified as acute or chronic, without hemorrhage or perforation; F03.90 Unspecified dementia, unspecified severity, without behavioral disturbance, psychotic disturbance, mood disturbance, and anxiety; R07.89 Other chest pain; F41.9 Anxiety disorder, unspecified; K59.09 Other constipation; Z90.89 Acquired absence of other organs; Z88.3 Allergy status to other anti-infective agents; Z88.2 Allergy status to sulfonamides; Z88.8 Allergy status to other drugs, medicaments and biological substances; Z79.899 Other long term (current) drug therapy; Z79.890 Hormone replacement therapy; Z90.49 Acquired absence of other specified parts of digestive tract; Z90.710 Acquired absence of both cervix and uterus; Z98.49 Cataract extraction status, unspecified eye; Z82.49 Family history of ischemic heart disease and other diseases of the circulatory system; Z74.01 Bed confinement status
CPT/HCPCS: 36415; 71045; 71275; 80048; 80053; 80202; 82553; 83880; 84145; 84484; 85025; 85027; 87324; 87449; 93005; 93010; 93306; 96374; J0692; J1644; J1940; J3370; J3490; J7050; S0028; U0002